=== PATIENT | female | born 1965 | race Caucasian/White ===

== ENCOUNTER 2019-04-14 14:13 | Inpatient (IN) ==
[2019-04-14] MEDS ORDERED: LACTATED RINGERS 1,000 ML IV ONE ×2 (14:45→15:45)
--- NOTE | 2019-04-14 14:48 | Emergency Department Note ---
General Adult HPI - General Chief complaint: Cold/Flu Symptoms Stated complaint: Cold / flu Time Seen by Provider: 04/14/19 14:24 Source: patient Mode of arrival: EMS Limitations: language barrier, altered mental status, physical limitation - History of Present Illness HPI Narrative: This is a developmentally disabled patient lives at [facility] and has had an upper respiratory infection or pneumonia for the last couple weeks. She was treated with Zithromax and finished a course of that but does not seem to be any better. She is a little hypoxic requiring oxygen with O2 sat in the mid 80s off oxygen. - Related Data Home Medications Medication Instructions Recorded Confirmed Albuterol Sulfate [Ventolin] 2.5 mg INH BIDP PRN 04/14/19 04/14/19 Divalproex Sodium [Depakote] 125 mg PO BID 04/14/19 04/14/19 Divalproex Sodium [Depakote] 125 mg PO DAILY 04/14/19 04/14/19 Famotidine [Pepcid] 40 mg PO DAILY 04/14/19 04/14/19 Levothyroxine [Synthroid] 88 mcg PO QAMAC 04/14/19 04/14/19 Mv-Mn/FA/D3/Lycopene/Lut/Coq10 1 tab PO DAILY 04/14/19 04/14/19 [Daily Multivitamin Capsule] Propylene Glycol/Peg 400/Pf 1 gtt OU DAILY 04/14/19 04/14/19 [Systane 0.3-0.4% Eye Drop] guaiFENesin/DEXTROMETHORPHAN 15 ml PO QID 04/14/19 04/14/19 [Robitussin Dm] Allergies Allergy/AdvReac Type Severity Reaction Status Date / Time pantoprazole Allergy Unknown Other Verified 04/14/19 14:15 Review of Systems All systems ED: reviewed and negative except as stated. Past Medical History - Past Medical History Medical history: Reports: dementia, GERD, seizures, thyroid disease - Social History smoking status: Never smoker Physical Exam Limitations: language barrier, altered mental status, physical limitation General appearance: in no apparent distress Head: atraumatic, normocephalic Eye: Present: normal appearance ENT: Present: mucous membranes dry Neck: Present: normal inspection Chest: Present: normal inspection Respiratory: Present: rales/crackles Cardiovascular: Present: regular rate, normal rhythm, normal heart sounds Abdominal: Present: soft. Absent: distention, tenderness Skin: Present: warm, dry Course Vital Signs Temperature 99.1 F H 04/14/19 14:17 Respiratory Rate 22 04/14/19 14:17 Pulse Oximetry (%) 86 L 04/14/19 14:17 Temperature 97.7 F 04/14/19 18:06 Pulse Rate 94 H 04/14/19 18:16 Respiratory Rate 18 04/14/19 18:16 Blood Pressure 96/62 04/14/19 18:16 Pulse Oximetry (%) 92 04/14/19 18:16 Medical Decision Making - MDM Narrative Medical decision making narrative: This patient does have pneumonia and was hypoxic off oxygen. Also is a bit hypotensive despite 2 L of fluid. She is comfort care only. We did culture her and gave her Rocephin and Levaquin and she will be admitted to the hospital. - Lab Data Lab results reviewed: Yes I reviewed the patient's lab results. Result diagrams: 04/14/19 14:31 04/14/19 14:30 Lab Results 04/14/19 04/14/19 04/14/19 Range/Units 14:30 14:31 14:31 WBC 8.9 (4.5-11.0) K/mcL RBC 4.10 (4.00-5.20) M/mcL Hgb 13.9 (12.0-15.0) g/dL Hct 42.1 (36.0-48.0) % MCV 102.5 H (80.0-100.0) fL MCH 33.8 (26.0-34.0) pg MCHC 33.0 (31.0-36.0) g/dL RDW 14.1 (11.5-14.5) % Plt Count 232 (140-440) K/mcL MPV 9.1 (7.4-10.4) fL Gran % 75.8 (38.0-78.0) % Lymph % (Auto) 17.6 (15.5-49.0) % [place] % (Auto) 6.3 (1.0-12.0) % Eos % (Auto) 0.1 (0.0-7.0) % Baso % (Auto) 0.2 (0.0-2.0) % Gran # 6.8 (1.8-8.0) K/mcL Lymph # (Auto) 1.6 (1.5-4.8) K/mcL [place] # (Auto) 0.6 (0.1-0.9) K/mcL Eos # (Auto) 0 (0.0-0.7) K/mcL Baso # (Auto) 0 (0.0-0.3) K/mcL VBG Lactic Acid 2.4 H (0.5-2.0) mmol/L Sodium 143 (133-145) mmol/L Potassium 3.9 (3.3-5.1) mmol/L Chloride 106 (96-108) mmol/L Carbon Dioxide 25 (22-30) mmol/L Anion Gap 12.0 (8-16) BUN 25 H (6-20) mg/dl Creatinine 1.0 (0.6-1.1) mg/dl GFR Calculation 64 Glucose 91 (70-105) mg/dL Calcium 8.9 (8.6-10.4) mg/dl Total Bilirubin 0.5 (0.0-1.0) mg/dL AST 27 (0-37) U/l ALT 13 (0-40) U/l Alkaline Phosphatase 113 (39-117) U/L Total Protein 7.4 (5.9-8.4) gm/dL Albumin 3.2 (3.2-5.2) gm/dL Globulin 4.2 H (2.2-3.7) gm/dL Albumin/Globulin Ratio 0.8 L (1.0-2.3) - Radiology Data Radiology results reviewed: Yes I reviewed the patient's radiology results. Disposition Pt seen by SOCK EXAMINER/PA only: No Clinical Impression: Pneumonia Disposition: Xfer As Inpt ([facility]) Condition: Fair Referrals: Rubén Goncalves MD [Primary Care Provider] - Time of Disposition: 19:12
--- NOTE | 2019-04-14 14:49 | XRay Report ---
CLINICAL INFORMATION: increased o2 demand / cough COMPARISON: None. FINDINGS: Heart size, mediastinum and pulmonary vessels are normal. Small patchy bibasilar infiltrates appreciated. No effusions. Bones and soft tissues normal. IMPRESSION: Small patchy bibasilar infiltrates. Consider aspiration or infection Interpreted and Authenticated by: Michael Easley 04/14/19
[2019-04-14 15:11] LABS: Basophils # (Auto) 0 K/mcL (0.0-0.3); Basophils % (Auto) 0.2 % (0.0-2.0); Eosinophils # (Auto) 0 K/mcL (0.0-0.7); Eosinophils % (Auto) 0.1 % (0.0-7.0); Granulocytes % (Auto) 75.8 % (38.0-78.0); Hematocrit 42.1 % (36.0-48.0); Hemoglobin 13.9 g/dL (12.0-15.0); Lymphocytes # (Auto) 1.6 K/mcL (1.5-4.8); Lymphocytes % (Auto) 17.6 % (15.5-49.0); Mean Cell Volume 102.5 fL (80.0-100.0); Mean Platelet Volume 9.1 fL (7.4-10.4); Monocytes # (Auto) 0.6 K/mcL (0.1-0.9); Monocytes % (Auto) 6.3 % (1.0-12.0); Platelet Count 232 K/mcL (140-440); Red Cell Distribution Width 14.1 % (11.5-14.5); WBC 8.9 K/mcL (4.5-11.0)
[2019-04-14] MEDS ORDERED: cefTRIAXone 1 GM VIAL IV ONE (15:24)
[2019-04-14] MEDS ORDERED: LEVOFLOXACIN 750 MG/150 ML BAG IV ONE (15:24)
[2019-04-14 15:30] LABS: ALT/SGPT 13 U/l (0-40); AST/SGOT 27 U/l (0-37); Albumin 3.2 gm/dL (3.2-5.2); Albumin/Globulin Ratio 0.8 (1.0-2.3); Alkaline Phosphatase 113 U/L (39-117); Bilirubin,Total 0.5 mg/dL (0.0-1.0); Blood Urea Nitrogen 25 mg/dl (6-20); Calcium 8.9 mg/dl (8.6-10.4); Carbon Dioxide 25 mmol/L (22-30); Chloride 106 mmol/L (96-108); Globulin 4.2 gm/dL (2.2-3.7); Glomerular Filtration Rate 64; Glucose 91 mg/dL (70-105)
[2019-04-14] MEDS ORDERED: 0.9 % SODIUM CHLORIDE 1,000 ML IV ONE ×2 (16:05→19:13)
[2019-04-14] MEDS ORDERED: ACETAMINOPHEN 1,000 MG/100 ML BOTTLE IV ONE (16:05)
--- NOTE | 2019-04-14 19:39 | Internal Med History&Physical ---
Medical - H&P: HPI Patient information: Note initiated : 04/14/19 at 7:36 pm Service Date, if different from initiated Date: [] Patient: Tati Mena a 54 y/o F admitted on for Cold / flu. Chief Complaint: [] History of present illness: Ms. Mena is a 54 year old F With Down syndrome who resides at [facility] who presents with fever chills cough appearance of shortness of breath for 10 days. She finished a course of azithromycin today but has not shown any improvement. Sats in the ED were 86 on room air. Chest x-ray in the ED showed bilateral infiltrates. Her mother is power of assistant attorney general. She is obtained from the mother and chart as patient is unable to give any history given her chronic's mental state. Sounds like there is been concerned about her swallowing and she had a speech therapy evaluation in the distant past. Had poor oral intake lately. She is also quite sedentary and is bedbound and essentially been bedbound since her admission [place] in July. In the ED she was found to be mildly hypotensive and tachycardic as well as tachypneic with a temperature of 100.5. Has been on several liters oxygen. Blood pressure did show some improvement after fluids. Pulse rate also improved. Satting 96% on Blood cultures were obtained. Unable to obtain review of systems as patient is nonverbal at baseline Medical - H&P: PMH Medical history: Past medical history: Down syndrome Seizure disorder GERD Hypothyroidism Past surgical history: Left hip surgery Social history: Patient resides at [facility] and is bedbound and has been such since July. She is essentially nonverbal occasionally will say a word or 2. Her mother who resides [employer] is her POA Medical - H&P: Meds Home Medications Medication Instructions Recorded Confirmed Type Albuterol Sulfate [Ventolin] 2.5 mg INH BIDP PRN 04/14/19 04/14/19 History Divalproex Sodium [Depakote] 125 mg PO BID 04/14/19 04/14/19 History Divalproex Sodium [Depakote] 125 mg PO DAILY 04/14/19 04/14/19 History Famotidine [Pepcid] 40 mg PO DAILY 04/14/19 04/14/19 History Levothyroxine [Synthroid] 88 mcg PO QAMAC 04/14/19 04/14/19 History Mv-Mn/FA/D3/Lycopene/Lut/Coq10 1 tab PO DAILY 04/14/19 04/14/19 History [Daily Multivitamin Capsule] Propylene Glycol/Peg 400/Pf 1 gtt OU DAILY 04/14/19 04/14/19 History [Systane 0.3-0.4% Eye Drop] guaiFENesin/DEXTROMETHORPHAN 15 ml PO QID 04/14/19 04/14/19 History [Robitussin Dm] Allergies Allergy/AdvReac Type Severity Reaction Status Date / Time pantoprazole Allergy Unknown Other Verified 04/14/19 14:15 Medical - H&P: Exam - Constitutional Vitals: Temp Pulse Resp BP Pulse Ox 97.7 F 87 21 93/55 96 04/14/19 18:06 04/14/19 19:16 04/14/19 19:16 04/14/19 19:16 04/14/19 19:16 Exam: General: Alert, Awake, No acute Distress Eyes/N/T: EOMI, PEERL, DMM Head/Neck: neck supple, normocephalic atraumatic CV: RRR, No murmurs, normal s1/s2 Pulm: Bilateral rhonchi, no wheezing abd: soft, nontender, +BS x4 Ext: no clubbing/cyanosis/edema Neuro: Alert, good market investigator strength bilaterally, tracks with eyes skin: warm/dry Medical - H&P: Reslt - Labs CBC & Chem 7: 04/14/19 14:31 04/14/19 14:30 Labs: Short CBC 04/14/19 Range/Units 14:31 WBC 8.9 (4.5-11.0) K/mcL Hgb 13.9 (12.0-15.0) g/dL Hct 42.1 (36.0-48.0) % Plt Count 232 (140-440) K/mcL BMP 04/14/19 14:30 Sodium 143 Potassium 3.9 Chloride 106 Carbon Dioxide 25 BUN 25 H Creatinine 1.0 Glucose 91 Calcium 8.9 Liver Function 04/14/19 Range/Units 14:30 Total Bilirubin 0.5 (0.0-1.0) mg/dL AST 27 (0-37) U/l ALT 13 (0-40) U/l Alkaline Phosphatase 113 (39-117) U/L Albumin 3.2 (3.2-5.2) gm/dL - Impressions Chest x-ray bilateral infiltrates Medical - H&P: A/P - Narrative A/P Narrative: A: *PNA, concern for Asp: failed outpt Azithromycin *Sepsis: *Volume Depletion: *Down's Syndrome: *Deconditioning/debility/poor functional status: Has been bedbound since July *Seizure disorder: *GERD: *Hypothyroidism: * P: -Zosyn, pending SC/BC -NPO until -'s -check PCT and REsp viral panel -mrsa pcr - -CM -ppx: lovenox DNR/comfort care Mother is POA
[2019-04-14] MEDS: 0.9 % SODIUM CHLORIDE 1,000 ML IV SCH ×2 (20:16→21:19)
[2019-04-14] MEDS ORDERED: MAGNESIUM SULFATE 2 GM/50 ML BAG IV PRN (21:03)
[2019-04-14] MEDS ORDERED: LACTULOSE 20 GM/30 ML ORAL.SOL PO PRN (21:03)
[2019-04-14] MEDS ORDERED: POLYETHYLENE GLYCOL 3350 17 GM PACKET PO PRN (21:03)
[2019-04-14] MEDS ORDERED: POTASSIUM CHLORIDE 20 MEQ TABLET PO PRN ×2 (21:03)
[2019-04-14] MEDS ORDERED: POTASSIUM CHLORIDE 40 MEQ in DEXTROSE 5% IN WATER 500 ML IV PRN (21:03)
[2019-04-14] MEDS ORDERED: ONDANSETRON 4 MG/2 ML VIAL IV PRN (21:03)
[2019-04-14] MEDS ORDERED: SENNOSIDES 1 TABLET PO PRN (21:03)
[2019-04-14] MEDS ORDERED: IPRATROPIUM/ALBUTEROL 3 ML AMPUL.NEB NEB PRN (21:03)
[2019-04-14] MEDS ORDERED: IPRATROPIUM/ALBUTEROL 3 ML AMPUL.NEB NEB ONE (21:47)
[2019-04-14] MEDS: DOCUSATE SODIUM 100 MG CAPSULE PO SCH (22:06)
[2019-04-14] MEDS: FAMOTIDINE/PF 20 MG/2 ML VIAL IV SCH (22:07)
[2019-04-14] MEDS: 0.9 % SODIUM CHLORIDE 10 ML SYRINGE IV SCH (22:09)
[2019-04-14 22:11] LABS: Appearance,Urine HAZY; Bacteria,Urine 0 /hpf (0); Bilirubin,Urine NEG (NEG); Color,Urine AMBER; Culture Indicated,Urine NO; Glucose,Urine (UA) NEGATIVE (NEG); Ketones,Urine NEG (NEG); Leukocyte Esterase,Urine NEG /uL (NEG); Mucus,Urine MOD /hpf (0); Nitrate,Urine NEG (NEG); Protein,Urine 30 mg/dL (NEG); Specific Gravity,Urine 1.032 (1.000-1.035); Urine Blood NEG mg/dL (<0.03); Urine RBC 0 /hpf (0-1); Urine Squamous Epithelial Cell < 1 /hpf (0-4); Urine WBC 2 /hpf (0-4); Urobilinogen,Urine NEG (NEG)
[2019-04-14 22:22] LABS: C-Reactive Protein 10.4 mg/dl (0.0-0.8)
[2019-04-14] MEDS: PIPERACILLIN SODIUM/TAZOBACTAM 3.375 GM in DEXTROSE 5% IN WATER 50 ML IV SCH (22:23)
[2019-04-14] MEDS: DIVALPROEX 125 MG CAP.SPRINK PO SCH (22:25)
[2019-04-14 22:35] LABS: Band Neutrophils % 9 % (0-10); Lymphocytes % 11 % (15-49); Macrocytosis 1+ (NONE SEEN); Monocytes % (Manual) 7 % (1-12); Platelet Estimate NORMAL (NORMAL); RBC Morphology ABNORM (NORMAL); Segmented Neutrophils % 73 % (38-78)
[2019-04-15] MEDS: IPRATROPIUM/ALBUTEROL 3 ML AMPUL.NEB NEB SCH ×4 (01:01→18:54)
[2019-04-15] MEDS: 0.9 % SODIUM CHLORIDE 1,000 ML IV SCH ×2 (02:09→02:39)
[2019-04-15] MEDS: PIPERACILLIN SODIUM/TAZOBACTAM 3.375 GM in DEXTROSE 5% IN WATER 50 ML IV SCH ×5 (04:30→23:56)
[2019-04-15] MEDS: 0.9 % SODIUM CHLORIDE 10 ML SYRINGE IV SCH ×3 (05:35→20:57)
[2019-04-15 06:28] LABS: Hematocrit 35.2 % (36.0-48.0); Hemoglobin 11.5 g/dL (12.0-15.0); Mean Cell Volume 105.6 fL (80.0-100.0); Mean Corpuscular HGB Conc 32.7 g/dL (31.0-36.0); Platelet Count 153 K/mcL (140-440); RBC 3.33 M/mcL (4.00-5.20); Red Cell Distribution Width 13.5 % (11.5-14.5); WBC 7.8 K/mcL (4.5-11.0)
[2019-04-15 06:45] LABS: ALT/SGPT 5 U/l (0-40); AST/SGOT 19 U/l (0-37); Albumin 2.2 gm/dL (3.2-5.2); Albumin/Globulin Ratio 0.7 (1.0-2.3); Alkaline Phosphatase 77 U/L (39-117); Bilirubin,Direct < 0.2 mg/dL (0.0-0.3); Bilirubin,Total 0.3 mg/dL (0.0-1.0); Blood Urea Nitrogen 21 mg/dl (6-20); Calcium 7.9 mg/dl (8.6-10.4); Carbon Dioxide 20 mmol/L (22-30); Chloride 112 mmol/L (96-108); Globulin 3.1 gm/dL (2.2-3.7); Glomerular Filtration Rate 99; Glucose 97 mg/dL (70-105); Lactate Dehydrogenase 269 U/L (94-250); Phosphorous 2.9 mg/dL (2.7-4.5); Triglycerides 104 mg/dl (<150)
--- NOTE | 2019-04-15 07:02 | Internal Med Progress Note ---
Medical - PN: Subj Patient information: Note initiated : 04/15/19 at 6:55 am Service Date, if different from initiated Date: [] Patient: Tati Mena a 54 y/o F admitted on 04/14/19 for Cold / flu. Chief Complaint: [] Interval history: Ms. Mena is a 54 year old F With Down syndrome who resides at [facility] who presents with fever chills cough appearance of shortness of breath for 10 days. She finished a course of azithromycin today but has not shown any improvement. Sats in the ED were 86 on room air. Chest x-ray in the ED showed bilateral infiltrates. Her mother is power of securities attorney. She is obtained from the mother and chart as patient is unable to give any history given her chronic's mental state. Sounds like there is been concerned about her swallowing and she had a speech therapy evaluation in the distant past. Had poor oral intake lately. She is also quite sedentary and is bedbound and essentially been bedbound since her admission [place] in July. In the ED she was found to be mildly hypotensive and tachycardic as well as tachypneic with a temperature of 100.5. Has been on several liters oxygen. Blood pressure did show some improvement after fluids. Pulse rate also improved. Satting 96% on Blood cultures were obtained. 04/15 Overnight events. Blood pressure still low overnight. Awaiting morning vital signs. Sats high 90s on liters of oxygen. On auscultation improved sounds. Patient nonverbal at baseline unable to gather review of systems - Constitutional Vitals: Vital Signs Temp Pulse Resp BP Pulse Ox 96.9 F L 75 18 88/59 92 04/15/19 03:58 04/15/19 03:58 04/15/19 03:58 04/15/19 03:58 04/15/19 03:58 Period Temp Pulse Resp BP Sys/Ramesh Pulse Ox Last 24 Hr 96.9 F-100.5 F 66-105 17-27 83-105/52-76 86-99 Intake and Output 04/14/19 04/15/19 04/15/19 21:59 05:59 13:59 Intake Total 3250 456 Output Total 500 Balance 2750 456 Weight 62.55 kg Intake & Output: Intake & Output 04/14/19 04/15/1919 21:59 05:59 13:59 Intake Total 3250 456 Output Total 500 Balance 2750 456 Weight 62.55 kg Intake: IV 3250 456 Sodium Chloride 0.9% 1,000 ml @ 2000 406 84 mls/hr IV .[id number] [facility] Rx#: [id number] Lactated Ringers 1,000 ml @ 1000 Wide Open IV BOLUS ONE Rx#: [id number] Zosyn 3.375 gm In Dextrose 5% 50 in Water 50 ml @ 100 mls/hr IV Q6H [facility] Rx#:[id number] Oral 0 Output: Urine Catheter Amount 500 Straight 500 Other: Urine Appearance Sediment Straight Cloudy Urine Color Dark Valeria Straight Light Valeria Urine Odor Strong Straight Foul Exam: General: Alert, Awake, No acute Distress Eyes/N/T: EOMI, Head/Neck: neck supple, CV: RRR, No murmurs, Pulm: much improved Bilateral rhonchi, no wheezing abd: soft, nontender, +BS x4 Ext: no clubbing/cyanosis/edema Neuro: Alert, moves extremities, nonverbal at baseline skin: warm/dry Medical - PN: Obj Da - Labs CBC & Chem 7: 04/15/19 05:20 04/15/19 05:20 Labs: Abnormal Lab Results 04/15/19 04/15/19 04/14/19 05:20 05:20 21:35 RBC 3.33 L Hgb 11.5 L Hct 35.2 L MCV 105.6 H MCH 34.6 H Lymphocytes % RBC Morphology Macrocytosis VBG Lactic Acid Chloride 112 H Carbon Dioxide 20 L BUN 21 H Calcium 7.9 L Lactate Dehydrogenase 269 H C-Reactive Protein Total Protein 5.3 L Albumin 2.2 L Globulin Albumin/Globulin Ratio 0.7 L Urine Protein 30 A 04/14/19 04/14/19 04/14/19 21:15 21:15 14:31 RBC Hgb Hct MCV MCH Lymphocytes % 11 L RBC Morphology Abnorm A Macrocytosis 1+ A VBG Lactic Acid 2.4 H Chloride Carbon Dioxide BUN Calcium Lactate Dehydrogenase C-Reactive Protein 10.4 H Total Protein Albumin Globulin Albumin/Globulin Ratio Urine Protein 04/14/19 04/14/19 14:31 14:30 RBC Hgb Hct MCV 102.5 H MCH Lymphocytes % RBC Morphology Macrocytosis VBG Lactic Acid Chloride Carbon Dioxide BUN 25 H Calcium Lactate Dehydrogenase C-Reactive Protein Total Protein Albumin Globulin 4.2 H Albumin/Globulin Ratio 0.8 L Urine Protein Meds: Medications Albuterol/Ipratropium (Duoneb) 3 ml NEB Q6HRT [facility] Last Admin: 04/15/19 01:01 Dose: 3 ml Documented by: Albuterol/Ipratropium (Duoneb) 3 ml NEB Q4HP PRN PRN Reason: Shortness Of Breath Last Admin: 04/14/19 21:47 Dose: 3 ml Documented by: Divalproex Sodium (Depakote Sprinkles) 125 mg PO BID [facility] Last Admin: 04/14/19 22:25 Dose: 125 mg Documented by: Divalproex Sodium (Depakote Sprinkles) 125 mg PO DAILY [facility] Docusate Sodium (Colace) 100 mg PO BID [facility] Last Admin: 04/14/19 22:06 Dose: Not Given Documented by: Enoxaparin Sodium (Lovenox) 40 mg SQ DAILY [facility] Famotidine (Pepcid) 20 mg IV Q12 [facility] Last Admin: 04/14/19 22:07 Dose: 20 mg Documented by: Sodium Chloride (Sodium Chloride 0.9%) 1,000 mls @ 84 mls/hr IV .[id number] [facility] Stop: 04/15/19 19:33 Last Admin: 04/15/19 02:09 Dose: 84 mls/hr Documented by: Potassium Chloride 40 meq/ (Dextrose) 520 mls @ 130 mls/hr IV UD PRN PRN Reason: Potassium < 3 Magnesium Sulfate (Magnesium Sulfate) 2 gm in 50 mls @ 50 mls/hr IV UD PRN PRN Reason: Magnesium </= 1.6 Piperacillin Sod/Tazobactam (Sod 3.375 gm/ Dextrose) 50 mls @ 100 mls/hr IV Q6H [facility]; Protocol Last Admin: 04/15/19 05:48 Dose: Not Given Documented by: Lactulose (Cephulac) 10 gm PO DAILYP PRN PRN Reason: Constipation Levothyroxine Sodium (Synthroid) 88 mcg PO QAMAC [facility] Ondansetron HCl (Zofran) 4 mg IV Q4HP PRN PRN Reason: Nausea And Vomiting Propylene Glycol/Peg 400/Pf [Systane] 0. 3-0.4% Eye Drops 1 dose OU DAILY YAIR Polyethylene Glycol (Miralax) 17 gm PO DAILYP PRN PRN Reason: Constipation Potassium Chloride (Kdur) 40 meq PO UD PRN PRN Reason: Potssium is 3-3.5 Potassium Chloride (Kdur) 40 meq PO UD PRN PRN Reason: Potassium < 3 Senna (Senokot) 2 tab PO HSP PRN PRN Reason: Constipation Sodium Chloride (Saline Flush) 10 ml IV Q8 [facility] Last Admin: 04/15/19 05:35 Dose: Not Given Documented by: Medical - PN: A/P - Time Spent With Patient Total time spent is greater than 50% in coordination of care (as documented) at patient's floor/unit and/or counseling patient: - Narrative A/P Narrative: A: *PNA, concern for Asp: failed outpt Azithromycin -resp viral panel neg *Acute hypoxic Resp failure: 2/2 above *Sepsis: improving *Volume Depletion: improved *Down's Syndrome: *Deconditioning/debility/poor functional status: Has been bedbound since July *Seizure disorder: *GERD: *Hypothyroidism: * P: -Zosyn, pending SC/BC -NPO until -'s while npo - -CM -ppx: lovenox DNR/comfort care Mother is POA Medical - PN: Qual - Stroke Symptom Onset Unknown: No - VTE Deep Vein Thrombosis/Pulmonary Embolism Present on Admission: No
[2019-04-15] MEDS ORDERED: DIVALPROEX 125 MG CAP.SPRINK PO SCH (09:00)
[2019-04-15 09:26] LABS: Band Neutrophils % 9 % (0-10); Eosinophils % (Manual) 3 % (0-7); Lymphocytes % 14 % (15-49); Metamyelocytes % 2 % (0-0); Microcytosis 1+ (NONE SEEN); Monocytes % (Manual) 11 % (1-12); Platelet Estimate NORMAL (NORMAL); RBC Morphology ABNORM (NORMAL); Reactive Lymphocytes 1 % (0-2); Segmented Neutrophils % 60 % (38-78); Toxic Granulation 1+ (NONE SEEN)
[2019-04-15] MEDS: 0.45 % SODIUM CHLORIDE 1,000 ML IV SCH ×2 (10:47→15:30)
[2019-04-15] MEDS: LEVOTHYROXINE 88 MCG TABLET PO SCH (10:48)
[2019-04-15] MEDS: ENOXAPARIN 40 MG/0.4 ML SYRINGE SQ SCH (10:49)
[2019-04-15] MEDS: FAMOTIDINE/PF 20 MG/2 ML VIAL IV SCH ×2 (10:49→20:56)
[2019-04-15] MEDS: DOCUSATE SODIUM 100 MG CAPSULE PO SCH ×2 (10:50→20:56)
[2019-04-15] MEDS: DIVALPROEX 125 MG CAP.SPRINK PO SCH ×3 (12:23→20:55)
[2019-04-15] MEDS: PEG OU SCH (13:34)
[2019-04-15] MEDS: EYE OU SCH (13:34)
[2019-04-15] MEDS: PROPYLENE GLYCOL OU SCH (13:34)
--- NOTE | 2019-04-15 16:57 | Discharge Summary ---
Medical - DS: Prov Patient information: Note initiated : 04/15/19 at 4:55 pm Service Date, if different from initiated Date: [] Patient: Tati Mena a 54 y/o F admitted on 04/14/19 for Cold / flu. Chief Complaint: [] Date of admission: 04/14/19 20:52 Discharge date: 04/16/19 Primary care physician: Rubén Goncalves Consults: 04/14/19 Consult to Physician [CONS] Stat Comment: Consulting Provider: Owen Somers Reason For Exam: Physician to Consult Medical - DS: Meds - Discharge Medications Prescriptions: Amoxicillin/Potassium Clav [Augmentin] 875 mg PO Q12H #8 tab Lactobacillus [Culturelle] 1 cap PO BID #40 capsule Active and Home Medications: Home Medications Albuterol Sulfate [Ventolin] 2.5 mg INH BIDP PRN 04/14/19 [History Confirmed 04/14/19 Last Taken Unknown] Divalproex Sodium [Depakote] 125 mg PO BID 04/14/19 [History Confirmed 04/14/19 Last Taken Unknown] Divalproex Sodium [Depakote] 125 mg PO DAILY 04/14/19 [History Confirmed 04/14/19 Last Taken Unknown] Famotidine [Pepcid] 40 mg PO DAILY 04/14/19 [History Confirmed 04/14/19 Last Taken Unknown] Levothyroxine [Synthroid] 88 mcg PO QAMAC 04/14/19 [History Confirmed 04/14/19 Last Taken Unknown] Mv-Mn/FA/D3/Lycopene/Lut/Coq10 [Daily Multivitamin Capsule] 1 tab PO DAILY 04/14/19 [History Confirmed 04/14/19 Last Taken Unknown] Propylene Glycol/Peg 400/Pf [Systane 0.3-0.4% Eye Drop] 1 gtt OU DAILY 04/14/19 [History Confirmed 04/14/19 Last Taken Unknown] guaiFENesin/DEXTROMETHORPHAN [Robitussin Dm] 15 ml PO QID 04/14/19 [History Confirmed 04/14/19 Last Taken Unknown] Medical - DS: Hosp Hospital Course: Ms. Mena is a 54 year old F With Down syndrome who resides at [facility] who presents with fever chills cough appearance of shortness of breath for 10 days. She finished a course of azithromycin today but has not shown any improvement. Sats in the ED were 86 on room air. Chest x-ray in the ED showed bilateral infiltrates. Her mother is power of district attorney. She is obtained from the mother and chart as patient is unable to give any history given her chronic's mental state. Sounds like there is been concerned about her swallowing and she had a speech therapy evaluation in the distant past. Had poor oral intake lately. She is also quite sedentary and is bedbound and essentially been bedbound since her admission [place] in July. In the ED she was found to be mildly hypotensive and tachycardic as well as tachypneic with a temperature of 100.5. Has been on several liters oxygen. Blood pressure did show some improvement after fluids. Pulse rate also improved. Satting 96% on Blood cultures were obtained. 04/15 Overnight events. Blood pressure still low overnight. Awaiting morning vital signs. Sats high 90s on liters of oxygen. On auscultation improved sounds. Patient nonverb 04/16 Patient doing well. No overnight events. On room air. Seen by speech therapy yesterday and found to have moderate oral pharyngeal dysphasia and put on a dysphasia diet. Stable for discharge Discharge diagnosis: Operation pneumonia oral pharyngeal dysphagia acute hypoxic respiratory adore Secondary discharge diagnosis: Sepsis volume depletion Down syndrome deconditioning debility poor functional status seizure disorder GERD hypothyroidism - Time Spent with Patient Total time spent providing and/or coordinating discharge services: Greater than 30 minutes Medical - DS: Exam - Constitutional Vitals: Vital Signs Temp Pulse Pulse Resp BP BP BP 04/15/19 13:00 86 20 04/15/19 12:00 97.4 F 74 18 90/58 04/15/19 08:00 97.0 F 79 18 83/66 04/15/19 07:28 04/15/19 07:26 80 16 04/15/19 03:58 96.9 F L 75 18 88/59 04/15/19 01:03 97.1 F 66 18 90/60 04/14/19 22:05 83 20 04/14/19 22:03 89 20 04/14/19 21:03 97.6 F 85 20 87/60 04/14/19 20:52 97.6 F 85 20 87/60 04/14/19 20:46 85 17 92/55 04/14/19 20:45 97.7 F 85 17 92/55 04/14/19 20:35 84 20 92/53 04/14/19 20:32 87 19 04/14/19 20:31 87 21 92/53 04/14/19 20:16 25 H 86/52 04/14/19 20:01 85 18 96/55 04/14/19 19:46 17 99/53 04/14/19 19:31 17 87/63 04/14/19 19:16 87 21 93/55 04/14/19 19:09 89 18 84/52 04/14/19 19:01 89 26 H 85/52 04/14/19 18:46 91 H 20 83/52 04/14/19 18:31 93 H 19 88/57 04/14/19 18:16 94 H 18 96/62 04/14/19 18:08 95 H 18 105/76 04/14/19 18:06 97.7 F 95 H 18 105/76 04/14/19 18:01 93 H 20 88/59 04/14/19 17:46 96 H 27 H 102/65 04/14/19 17:31 103 H 25 H 99/63 04/14/19 17:02 105 H 21 92/65 Pulse Ox 04/15/19 13:00 04/15/19 12:00 98 04/15/19 08:00 100 04/15/19 07:28 97 04/15/19 07:26 04/15/19 03:58 92 04/15/19 01:03 92 04/14/19 22:05 95 04/14/19 22:03 04/14/19 21:03 95 04/14/19 20:52 95 04/14/19 20:46 99 04/14/19 20:45 99 04/14/19 20:35 97 04/14/19 20:32 96 04/14/19 20:31 99 04/14/19 20:16 04/14/19 20:01 95 04/14/19 19:46 04/14/19 19:31 04/14/19 19:16 96 04/14/19 19:09 97 04/14/19 19:01 97 04/14/19 18:46 96 04/14/19 18:31 95 04/14/19 18:16 92 04/14/19 18:08 96 04/14/19 18:06 98 04/14/19 18:01 98 04/14/19 17:46 96 04/14/19 17:31 97 04/14/19 17:02 93 Intake and Output 04/15/19 04/15/19 04/15/19 05:59 13:59 21:59 Intake Total 506 50 Balance 506 50 Intake: IV 506 50 Sodium Chloride 0.9% 1,000 ml @ 406 84 mls/hr IV .[id number] [facility] Rx#: [id number] Zosyn 3.375 gm In Dextrose 5% 100 50 in Water 50 ml @ 100 mls/hr IV Q6H [facility] Rx#:[id number] Oral 0 Other: Stool Color Brown Stool Consistency Soft Liquid Medical - DS: Data Labs on day of discharge: Labs from last 24 hours 04/15/19 04/15/19 04/14/19 05:20 05:20 21:35 WBC 7.8 RBC 3.33 L Hgb 11.5 L Hct 35.2 L MCV 105.6 H MCH 34.6 H MCHC 32.7 RDW 13.5 Plt Count 153 MPV 9.0 Total Counted 100 Seg Neutrophils % 60 Band Neutrophils % 9 Lymphocytes % 14 L Monocytes % (Manual) 11 Eosinophils % (Manual) 3 Metamyelocytes % 2 H WBC Morphology Abnorm A Reactive Lymphocytes 1 Toxic Granulation 1+ A Platelet Estimate Normal RBC Morphology Abnorm A Microcytosis 1+ A Macrocytosis VBG Lactic Acid Sodium 142 Potassium 4.1 Chloride 112 H Carbon Dioxide 20 L Anion Gap 10.0 BUN 21 H Creatinine 0.7 GFR Calculation 99 Glucose 97 Uric Acid 3.0 Calcium 7.9 L Phosphorus 2.9 Magnesium 2.1 Total Bilirubin 0.3 Direct Bilirubin < 0.2 GGT 26 AST 19 ALT 5 Alkaline Phosphatase 77 Lactate Dehydrogenase 269 H C-Reactive Protein Total Protein 5.3 L Albumin 2.2 L Globulin 3.1 Albumin/Globulin Ratio 0.7 L Triglycerides 104 Procalcitonin Urine Color Valeria Urine Appearance Hazy Urine pH 7.0 Ur Specific [place] 1.032 Urine Protein 30 A Urine Glucose (UA) Negative Urine Ketones Neg Urine Occult Blood Neg Urine Nitrate Neg Urine Bilirubin Neg Urine Urobilinogen Neg Ur Leukocyte Esterase Neg Urine RBC 0 Urine WBC 2 Ur Squamous Epith Cells < 1 Urine Bacteria 0 Urine Mucus Mod Ur Culture Indicated? No 04/14/19 04/14/19 04/14/19 21:15 21:15 21:15 WBC RBC Hgb Hct MCV MCH MCHC RDW Plt Count MPV Total Counted 100 Seg Neutrophils % 73 Band Neutrophils % 9 Lymphocytes % 11 L Monocytes % (Manual) 7 Eosinophils % (Manual) Metamyelocytes % WBC Morphology Reactive Lymphocytes Toxic Granulation Platelet Estimate Normal RBC Morphology Abnorm A Microcytosis Macrocytosis 1+ A VBG Lactic Acid Sodium Potassium Chloride Carbon Dioxide Anion Gap BUN Creatinine GFR Calculation Glucose Uric Acid Calcium Phosphorus Magnesium Total Bilirubin Direct Bilirubin GGT AST ALT Alkaline Phosphatase Lactate Dehydrogenase C-Reactive Protein 10.4 H Total Protein Albumin Globulin Albumin/Globulin Ratio Triglycerides Procalcitonin 0.11 Urine Color Urine Appearance Urine pH Ur Specific [place] Urine Protein Urine Glucose (UA) Urine Ketones Urine Occult Blood Urine Nitrate Urine Bilirubin Urine Urobilinogen Ur Leukocyte Esterase Urine RBC Urine WBC Ur Squamous Epith Cells Urine Bacteria Urine Mucus Ur Culture Indicated? 04/14/19 04/14/19 14:31 14:30 WBC RBC Hgb Hct MCV MCH MCHC RDW Plt Count MPV Total Counted Seg Neutrophils % Band Neutrophils % Lymphocytes % Monocytes % (Manual) Eosinophils % (Manual) Metamyelocytes % WBC Morphology Reactive Lymphocytes Toxic Granulation Platelet Estimate RBC Morphology Microcytosis Macrocytosis VBG Lactic Acid 2.4 H Pending Sodium Potassium Chloride Carbon Dioxide Anion Gap BUN Creatinine GFR Calculation Glucose Uric Acid Calcium Phosphorus Magnesium Total Bilirubin Direct Bilirubin GGT AST ALT Alkaline Phosphatase Lactate Dehydrogenase C-Reactive Protein Total Protein Albumin Globulin Albumin/Globulin Ratio Triglycerides Procalcitonin Urine Color Urine Appearance Urine pH Ur Specific [place] Urine Protein Urine Glucose (UA) Urine Ketones Urine Occult Blood Urine Nitrate Urine Bilirubin Urine Urobilinogen Ur Leukocyte Esterase Urine RBC Urine WBC Ur Squamous Epith Cells Urine Bacteria Urine Mucus Ur Culture Indicated? Medical - DS: A/P - Patient/Caregiver Discharge Instructions Activity: increase activity as tolerated Diet: Dysphagia Level 4 Pureed Foods (extremely thick liquids. completely upright for any oral intake) Prescriptions: Amoxicillin/Potassium Clav [Augmentin] 875 mg PO Q12H #8 tab - Follow up Plan Follow up with: Rubén Goncalves MD [Primary Care Provider] - Disposition: er [facility] Care Plan Goals: This discharge packet is provided to you to help keep you informed about your care. We want to ensure you get everything you need when you go home. You will also be receiving a call from us in a few days to follow up with you and see how you are doing since your discharge. This gives us a chance to listen to any concerns you maybe experiencing since you were discharged or any additional needs you may have, as well as providing us feedback on your care experience. We strive to always provide excellent care and thank you for your feedback and for choosing [facility]. Prognosis: Undetermined Rehab Potential: Fair I certify that the patient requires SNF services: Yes Overall status at discharge: patient is progressing back to baseline Medical - DS: Qual - VTE Deep Vein Thrombosis/Pulmonary Embolism Present on Admission: No
[2019-04-16] MEDS: IPRATROPIUM/ALBUTEROL 3 ML AMPUL.NEB NEB SCH ×2 (01:17→07:41)
[2019-04-16] MEDS: PIPERACILLIN SODIUM/TAZOBACTAM 3.375 GM in DEXTROSE 5% IN WATER 50 ML IV SCH ×2 (06:20→12:14)
[2019-04-16] MEDS: 0.9 % SODIUM CHLORIDE 10 ML SYRINGE IV SCH ×2 (06:31→14:14)
[2019-04-16 07:14] LABS: Blood Urea Nitrogen 13 mg/dl (6-20); Calcium 8.1 mg/dl (8.6-10.4); Carbon Dioxide 25 mmol/L (22-30); Chloride 110 mmol/L (96-108); Glomerular Filtration Rate 99; Glucose 102 mg/dL (70-105)
[2019-04-16] MEDS: LEVOTHYROXINE 88 MCG TABLET PO SCH (07:41)
[2019-04-16] MEDS ORDERED: LACTOBACILLUS 1 CAPSULE PO SCH (09:10)
[2019-04-16] MEDS: DOCUSATE SODIUM 100 MG CAPSULE PO SCH (09:51)
[2019-04-16] MEDS: PROPYLENE GLYCOL OU SCH (09:52)
[2019-04-16] MEDS: ENOXAPARIN 40 MG/0.4 ML SYRINGE SQ SCH (09:52)
[2019-04-16] MEDS: EYE OU SCH (09:52)
[2019-04-16] MEDS: DIVALPROEX 125 MG CAP.SPRINK PO SCH ×2 (09:52→13:19)
[2019-04-16] MEDS: FAMOTIDINE/PF 20 MG/2 ML VIAL IV SCH (09:52)
[2019-04-16] MEDS: PEG OU SCH (09:52)
[2019-04-16] MEDS ORDERED: 0.9 % SODIUM CHLORIDE 200 ML IV ONE (10:20)
[2019-04-16] MEDS ORDERED: FLU VACC QS2019-20(6MOS UP)/PF 60 MCG/0.5 ML SYRINGE IM ONE (13:26)
[2019-04-16] MEDS ORDERED: PNEUMOCCAL 13 VACC (ADULT) 0.5 ML SYRINGE IM ONE (13:26)
[2019-04-16] MEDS ORDERED: PNEUMOCOCCAL 23-VAL P-SAC VAC 0.5 ML SYRINGE IM ONE (13:30)
== END 2019-04-16 14:55 | DRG 871 ==
LOC: ED 14:13 → MEDSUR 20:52
PROVIDERS: ADMIT Internal Medicine; ATTEND Internal Medicine

== ENCOUNTER 2019-06-28 07:59 | Inpatient (IN) ==
[2019-06-28] MEDS ORDERED: LACTATED RINGERS 1,000 ML IV ONE (08:08)
[2019-06-28] MEDS ORDERED: IPRATROPIUM/ALBUTEROL 3 ML AMPUL.NEB NEB ONE ×2 (08:32→09:06)
[2019-06-28] MEDS ORDERED: 0.9 % SODIUM CHLORIDE 1,000 ML IV ONE ×2 (08:50→13:08)
[2019-06-28] MEDS ORDERED: PIPERACILLIN SODIUM/TAZOBACTAM 3.375 GM in DEXTROSE 5% IN WATER 50 ML IV ONE (08:52)
[2019-06-28] MEDS ORDERED: VANCOMYCIN 1,000 MG in 0.9 % SODIUM CHLORIDE 250 ML IV ONE (08:53)
--- NOTE | 2019-06-28 08:54 | Emergency Department Note ---
General Adult HPI - General Chief complaint: Cold/Flu Symptoms Stated complaint: Cold symptoms Time Seen by Provider: 06/28/19 08:40 Source: patient, EMS, old records reviewed Mode of arrival: EMS Limitations: other - History of Present Illness HPI Narrative: 54-year-old female with Down's syndrome patient comes in from [facility] [place] [facility] for productive cough with low oxygen saturations and unresponsiveness. Patient is unable to give me any meaningful history or review of systems. oxygen levels of 85% on RA-now on. She carries a diagnosis of Alzheimer's as well as seizures. She has been shaking recently and there is concern she is having partial seizures. Unclear if she has had a fever. Recently had Zithromax for cough. Also recent hospitalization for pneumonia 2 months ago. She is DNR with limited interventions. Her mother is coming from [facility] Medications Medication Instructions Recorded Confirmed Albuterol Sulfate [Ventolin] 2.5 mg INH BIDP PRN 04/14/19 06/28/19 Divalproex Sodium [Depakote] 125 mg PO BID 04/14/19 06/28/19 Divalproex Sodium [Depakote] 125 mg PO DAILY 04/14/19 06/28/19 Famotidine [Pepcid] 40 mg PO DAILY 04/14/19 06/28/19 Levothyroxine [Synthroid] 88 mcg PO QAMAC 04/14/19 06/28/19 Mv-Mn/FA/D3/Lycopene/Lut/Coq10 1 tab PO DAILY 04/14/19 06/28/19 [Daily Multivitamin Capsule] Propylene Glycol/Peg 400/Pf 1 gtt OU DAILY 04/14/19 06/28/19 [Systane 0.3-0.4% Eye Drop] Acetaminophen [Tylenol] 650 mg PO BID 06/28/19 06/28/19 Allergies Allergy/AdvReac Type Severity Reaction Status Date / Time pantoprazole Allergy Unknown Other Verified 06/28/19 08:00 Review of Systems Limitations: ROS unobtainable due to patients medical condition Past Medical History - Past Medical History Attestation: Yes: The following information was validated with the patient. Medical history: Reports: dementia, GERD, seizures, thyroid disease Surgical history ED: Reports: hip replacement - Social History smoking status: Never smoker Physical Exam Unresponsive to verbal stimuli. Staring blankly off into space. Normocephalic atraumatic. Conjunctive are clear sclerae white nonicteric. Pupils are equal reactive to light and accommodation. She does blink when I shine the light in her eyes. She is wearing mask oxygen and she has an occasional productive cough. Nursing staff reports that she did react as well when they did a flu swab through her nose. Neck is supple without lymphadenopathy or thyromegaly. Heart is regular rhythm but tachycardic. Lungs with rales bilaterally. No pedal edema. She does seem to be shaking a little bit from time to time this could be consistent with partial seizures. I am unable to get any meaningful history or review of systems from her-she is nonverbal but she does move away from pain and noxious stimuli. She is sitting up on her own Limitations: other Course Vital Signs Temperature 99.0 F 06/28/19 08:00 Pulse Rate 123 H 06/28/19 08:00 Respiratory Rate 28 H 06/28/19 08:00 Blood Pressure 156/129 06/28/19 08:00 Pulse Oximetry (%) 90 06/28/19 08:00 Temperature 99.0 F 06/28/19 08:00 Pulse Rate 110 H 06/28/19 08:32 Respiratory Rate 28 H 06/28/19 08:32 Blood Pressure 167/93 06/28/19 08:32 Pulse Oximetry (%) 90 06/28/19 08:32 Medical Decision Making - Lab Data Result diagrams: 06/28/19 08:11 06/28/19 08:10 - EKG Data EKG #1 EKG attestation: Yes I reviewed and interpreted this EKG., Yes There are no EKG findings of acute coronary syndrome, Yes This EKG will be read by optical goods worker EKG results narrative: Sinus tachycardia Disposition Pt seen by [employer]/PA only: No Summary: Suspect pneumonia versus PE or other respiratory compromise. Differential diagnosis includes sepsis and cardiac disease as well. Work-up ordered. Added CT angiogram of the chest. Start IV fluids and early antibiotics in the event this is sepsis. Blood cultures were ordered Patient will be checked out to Dr. Young at shift change Disposition: Still a Patient Condition: Critical Referrals: Rubén Goncalves MD [Primary Care Provider] -
[2019-06-28 09:13] LABS: Basophils # (Auto) 0 K/mcL (0.0-0.3); Basophils % (Auto) 0.2 % (0.0-2.0); Eosinophils # (Auto) 0 K/mcL (0.0-0.7); Eosinophils % (Auto) 0 % (0.0-7.0); Granulocytes % (Auto) 83.6 % (38.0-78.0); Hematocrit 46.5 % (36.0-48.0); Hemoglobin 14.9 g/dL (12.0-15.0); Lymphocytes # (Auto) 0.7 K/mcL (1.5-4.8); Lymphocytes % (Auto) 4.6 % (15.5-49.0); Mean Cell Volume 103.7 fL (80.0-100.0); Mean Corpuscular HGB Conc 32.1 g/dL (31.0-36.0); Mean Platelet Volume 11.3 fL (7.4-10.4); Monocytes # (Auto) 1.8 K/mcL (0.1-0.9); Monocytes % (Auto) 11.6 % (1.0-12.0); Platelet Count 175 K/mcL (140-440); RBC 4.49 M/mcL (4.00-5.20); Red Cell Distribution Width 16.5 % (11.5-14.5); WBC 15.9 K/mcL (4.5-11.0)
[2019-06-28 09:32] LABS: POC Blood Urea Nitrogen 94 mg/dl (6-20); POC CO2 24 mmol/L (22-30); POC Calcium, Ionized 1.15 mmol/L (1.16-1.32); POC Chloride 121 mmol/L (96-108); POC Creatinine 5.7 mg/dl (0.6-1.1); POC Glucose, Random 132 mg/dL (70-105); POC Potassium 4.9 mmol/L (3.3-5.1); POC Sodium 156 mmol/L (133-145)
--- NOTE | 2019-06-28 09:33 | Emergency Department Note ---
General Adult HPI - General Chief complaint: Cold/Flu Symptoms Stated complaint: Cold symptoms Time Seen by Provider: 06/28/19 08:40 Source: patient, EMS, old records reviewed Mode of arrival: EMS Limitations: other - History of Present Illness HPI Narrative: See history and physical dictated by Dr. Ivey. I am seeing patient after change in shift. She is poorly responsive, staring off into space, seems to have some rigors/coarse tremors generally but seems to be quite cold. Respiratory effort is some decreased. She does have crackles in her left base. Patient was briefly examined at 9:25 AM. 9:30 AM, POC creatinine 5.7. Patient is already had Vanco, Zosyn and blood cultures ordered. Already received DuoNeb. Blood gas comes back now with pH normal at 7.39 and a PCO 2 of 40 (venous blood gas). Base excess -0.7 and bicarb 24.2 with an SaO2 of 69.9. Hematocrit is 43%. This reportedly on oxygen mask at 13 L/min with a pulse ox of 89%. 9:35 AM - running 89 to 90% on 12 L. We will try BiPAP. - Related Data Home Medications Medication Instructions Recorded Confirmed Albuterol Sulfate [Ventolin] 2.5 mg INH BIDP PRN 04/14/19 06/28/19 Divalproex Sodium [Depakote] 125 mg PO BID 04/14/19 06/28/19 Divalproex Sodium [Depakote] 125 mg PO DAILY 04/14/19 06/28/19 Famotidine [Pepcid] 40 mg PO DAILY 04/14/19 06/28/19 Levothyroxine [Synthroid] 88 mcg PO QAMAC 04/14/19 06/28/19 Mv-Mn/FA/D3/Lycopene/Lut/Coq10 1 tab PO DAILY 04/14/19 06/28/19 [Daily Multivitamin Capsule] Propylene Glycol/Peg 400/Pf 1 gtt OU DAILY 04/14/19 06/28/19 [Systane 0.3-0.4% Eye Drop] Acetaminophen [Tylenol] 650 mg PO BID 06/28/19 06/28/19 Allergies Allergy/AdvReac Type Severity Reaction Status Date / Time pantoprazole Allergy Unknown Other Verified 06/28/19 08:00 Past Medical History - Past Medical History Medical history: Reports: dementia, GERD, seizures, thyroid disease Surgical history ED: Reports: hip replacement - Social History smoking status: Never smoker Physical Exam Limitations: altered mental status, physical limitation General appearance: obtunded, other (Some shaking particularly right upper extremity. Staring into space. Unable to get more information from her. Is awake.) Head: atraumatic, normocephalic Eye: Present: EOMI ENT: Present: mucous membranes dry Neck: Present: trachea midline Respiratory: Present: rales/crackles (Left base) Cardiovascular: Present: tachycardia Neurological: Present: other (Nonverbal at this point.) Skin: Present: cool, dry Course Vital Signs Temperature 99.0 F 06/28/19 08:00 Pulse Rate 123 H 06/28/19 08:00 Respiratory Rate 28 H 06/28/19 08:00 Blood Pressure 156/129 06/28/19 08:00 Pulse Oximetry (%) 90 06/28/19 08:00 Temperature 99.0 F 06/28/19 08:00 Pulse Rate 94 H 06/28/19 11:55 Respiratory Rate 25 H 06/28/19 11:55 Blood Pressure 79/60 06/28/19 11:55 Pulse Oximetry (%) 100 06/28/19 11:55 Medical Decision Making - [facility] Narrative Medical decision making narrative: 10:39 AM - patient's blood pressures have gradually declined in spite of nearly 2 L of fluid replacement. She is getting her antibiotics currently. Her mother is not here to discuss further with her. With her systolic blood pressures now in the 70s, will add Levophed and titrate. She is on BiPAP now. CT of the chest results pending. 10:44 AM - I spoke with Dr. John Paul Gonsalez, radiologist, who points out that there is central airway problems that involve significant narrowing and near occlusion including in the bronchus intermedius and both sides. There is significant pneumonia in the right lower lobe worse than left lower lobe with so me also on the right middle lobe etc. However, there is a near occlusion. This could be inflammatory versus neoplastic but suspicious for inflammatory pathology due to the multiple areas. Mucus plugging could be contributing. Recommendation to have adult education professional be involved and consider bronchoscopy. 11:44 AM - I spoke with director distribution, Dr. Fountain, who indicates he be certainly willing to consult on patient. Probably markedly dehydrated and fluids as the primary treatment given that her sodium is 156. 12:23 PM - I spoke with Dr. Alcon Day, adult education professional, who on reviewing her situation points out that she is too sick right now for bronchoscopy, would end up on ventilator afterwards etc. He is available for consultation if needed. Call out to hospitalist. 12:30 PM - patient's mother, Justina, in route from [place], called back. We got caught off at around 12:33 PM. She was saying something about comfort measures but I was not able to understand or get any specific new direction. 12:43 PM - I spoke briefly with Dr. Bhandari, hospitalist. 12:44 PM - I spoke with patient's daughter Justina again who is in route but still 45 minutes away. She would like to have patient go ahead and be treated with medical treatments but short of major interventions or aggressive measures until these can be further evaluated. She is in agreement to have patient go to ICU, be on antibiotics, have IV fluids, and blood pressure support medication for the time being. She is aware that if things further degenerate that the prognosis is exceedingly poor. She would like to take each new intervention one at a time to the side or decline. She is accompanied by Olga and and who are from the local [place] who came to [place] to help her calm to this hospital to see her daughter. - Lab Data Lab results reviewed: Yes I reviewed the patient's lab results. Result diagrams: 06/28/19 08:11 06/28/19 08:10 Lab Results 06/28/19 06/28/19 06/28/19 Range/Units 08:10 08:10 08:11 WBC 15.9 H (4.5-11.0) K/mcL RBC 4.49 (4.00-5.20) M/mcL Hgb 14.9 (12.0-15.0) g/dL Hct 46.5 (36.0-48.0) % POC Hct (36.0-48.0) % MCV 103.7 H (80.0-100.0) fL MCH 33.3 (26.0-34.0) pg MCHC 32.1 (31.0-36.0) g/dL RDW 16.5 H (11.5-14.5) % Plt Count 175 (140-440) K/mcL MPV 11.3 H (7.4-10.4) fL Gran % 83.6 H (38.0-78.0) % Lymph % (Auto) 4.6 L (15.5-49.0) % [place] % (Auto) 11.6 (1.0-12.0) % Eos % (Auto) 0 (0.0-7.0) % Baso % (Auto) 0.2 (0.0-2.0) % Gran # 13.3 H (1.8-8.0) K/mcL Lymph # (Auto) 0.7 L (1.5-4.8) K/mcL [place] # (Auto) 1.8 H (0.1-0.9) K/mcL Eos # (Auto) 0 (0.0-0.7) K/mcL Baso # (Auto) 0 (0.0-0.3) K/mcL PT (11.9-14.5) sec INR (0.9-1.1) APTT (20-37) sec VBG Lactic Acid 3.0 H (0.5-2.0) mmol/L POC Sodium (133-145) mmol/L Sodium 156 H (133-145) mmol/L POC Potassium (3.3-5.1) mmol/L Potassium 5.1 (3.3-5.1) mmol/L POC Chloride (96-108) mmol/L Chloride 112 H (96-108) mmol/L Carbon Dioxide 22 (22-30) mmol/L POC Total CO2 (22-30) mmol/L Anion Gap 22.0 H (8-16) POC BUN (6-20) mg/dl BUN 104 H* (6-20) mg/dl Creatinine 5.8 H* (0.6-1.1) mg/dl POC Creatinine (0.6-1.1) mg/dl GFR Calculation 8 Glucose 142 H (70-105) mg/dL POC Glucose (70-105) mg/dL Calcium 9.9 (8.6-10.4) mg/dl POC WB Ioniz Calcium (1.16-1.32) mmol/L Magnesium (1.6-2.5) mg/dL Total Bilirubin 0.8 (0.0-1.0) mg/dL AST 154 H (0-37) U/l ALT 128 H (0-40) U/l Alkaline Phosphatase 82 (39-117) U/L Total Protein 8.0 (5.9-8.4) gm/dL Albumin 3.5 (3.2-5.2) gm/dL Globulin 4.5 H (2.2-3.7) gm/dL Albumin/Globulin Ratio 0.8 L (1.0-2.3) Procalcitonin (<0.10) ng/mL 06/28/19 06/28/19 06/28/19 Range/Units 09:20 09:20 09:22 WBC (4.5-11.0) K/mcL RBC (4.00-5.20) M/mcL Hgb (12.0-15.0) g/dL Hct (36.0-48.0) % POC Hct 41.0 (36.0-48.0) % MCV (80.0-100.0) fL MCH (26.0-34.0) pg MCHC (31.0-36.0) g/dL RDW (11.5-14.5) % Plt Count (140-440) K/mcL MPV (7.4-10.4) fL Gran % (38.0-78.0) % Lymph % (Auto) (15.5-49.0) % [place] % (Auto) (1.0-12.0) % Eos % (Auto) (0.0-7.0) % Baso % (Auto) (0.0-2.0) % Gran # (1.8-8.0) K/mcL Lymph # (Auto) (1.5-4.8) K/mcL [place] # (Auto) (0.1-0.9) K/mcL Eos # (Auto) (0.0-0.7) K/mcL Baso # (Auto) (0.0-0.3) K/mcL PT 18.9 H (11.9-14.5) sec INR 1.6 H (0.9-1.1) APTT 32 (20-37) sec VBG Lactic Acid (0.5-2.0) mmol/L POC Sodium 156 H (133-145) mmol/L Sodium (133-145) mmol/L POC Potassium 4.9 (3.3-5.1) mmol/L Potassium (3.3-5.1) mmol/L POC Chloride 121 H (96-108) mmol/L Chloride (96-108) mmol/L Carbon Dioxide (22-30) mmol/L POC Total CO2 24 (22-30) mmol/L Anion Gap (8-16) POC BUN 94 H (6-20) mg/dl BUN (6-20) mg/dl Creatinine (0.6-1.1) mg/dl POC Creatinine 5.7 H* (0.6-1.1) mg/dl GFR Calculation Glucose (70-105) mg/dL POC Glucose 132 H (70-105) mg/dL Calcium (8.6-10.4) mg/dl POC WB Ioniz Calcium 1.15 L (1.16-1.32) mmol/L Magnesium 3.4 H (1.6-2.5) mg/dL Total Bilirubin (0.0-1.0) mg/dL AST (0-37) U/l ALT (0-40) U/l Alkaline Phosphatase (39-117) U/L Total Protein (5.9-8.4) gm/dL Albumin (3.2-5.2) gm/dL Globulin (2.2-3.7) gm/dL Albumin/Globulin Ratio (1.0-2.3) Procalcitonin 4.05 (<0.10) ng/mL - Radiology Data Radiology results reviewed: Yes I reviewed the patient's radiology results. - EKG Data EKG #1 EKG attestation: Yes There are no EKG findings of acute coronary syndrome, Yes This EKG will be read by vice president sales and marketing EKG shows normal: sinus rhythm Rate: tachycardia Disposition Pt seen by RETAIL MANAGEMENT TRAINEE/PA only: No Clinical Impression: Abnormal CT scan, chest, Hypernatremia, DNR no code (do not resuscitate) Bilateral pneumonia Qualifiers: Pneumonia type: due to unspecified organism Lung location: lower lobe of lung Qualified Code(s): J18.9 - Pneumonia, unspecified organism Acute renal failure Qualifiers: Acute renal failure type: unspecified Qualified Code(s): N17.9 - Acute kidney f ailure, unspecified Sepsis Qualifiers: Sepsis type: sepsis due to unspecified organism Sepsis acute organ dysfunction status: with acute organ dysfunction Summary: See "MEDICAL DECISION MAKING" above. Patient with pneumonia, renal failure, airway narrowing (inflammatory?), Severe hypernatremia, hypotension, etc. Conclusion is that she is still DNR but interventions medically desired per my conversation with patient's mother Justina. I spoke with Dr. Bhandari, hospitalist who kindly accepts her care. We will let Dr. Fountain know that consultation desired. Patient's mother is at least somewhat aware of her rather poor prognosis. Disposition: Xfer As Inpt ([facility]) Condition: Critical Referrals: Rubén Goncalves MD [Primary Care Provider] -
[2019-06-28 09:35] LABS: ALT/SGPT 128 U/l (0-40); AST/SGOT 154 U/l (0-37); Albumin 3.5 gm/dL (3.2-5.2); Albumin/Globulin Ratio 0.8 (1.0-2.3); Alkaline Phosphatase 82 U/L (39-117); Bilirubin,Total 0.8 mg/dL (0.0-1.0); Calcium 9.9 mg/dl (8.6-10.4); Carbon Dioxide 22 mmol/L (22-30); Globulin 4.5 gm/dL (2.2-3.7); Glucose 142 mg/dL (70-105)
[2019-06-28 09:37] LABS: Blood Urea Nitrogen 104 mg/dl (6-20); Chloride 112 mmol/L (96-108); Glomerular Filtration Rate 8
--- NOTE | 2019-06-28 09:51 | XRay Report ---
HISTORY: Hypoxia cough and cold symptoms FINDINGS: There are moderate-sized alveolar infiltrates in both lower lobes with milder involvement centrally in the right lung. These have become worse since prior exam done on 04/14/19. There is no apparent mass or adenopathy. No pleural effusion is present. The heart size is normal. IMPRESSION: Moderate bilateral pneumonia Interpreted and Authenticated by: John Paul Gonsalez 06/28/19
[2019-06-28 10:34] LABS: INR 1.6 (0.9-1.1); Prothrombin Time 18.9 sec (11.9-14.5)
--- NOTE | 2019-06-28 10:47 | Cat Scan Report ---
History: Pneumonia and shortness of breath TECHNIQUE: Chest was imaged without contrast. Sagittal, coronal and axial MIPS images were created. The radiation exposure was limited using dose reduction technology. FINDINGS: There is a large densely consolidating alveolar infiltrate in the right lower lobe with a moderate size consolidating infiltrate posteriorly medially in the left lower lobe. Milder alveolar infiltrates are present in the right middle and right upper lobes. There is no pleural effusion. No adenopathy is detected on this nonenhanced study. Is no evidence of pulmonary abscess. The heart is normal in size and contour. The lumen of the trachea and both left and right mainstem bronchi are abnormally small. The bronchus intermedius is partially occluded. IMPRESSION: Moderately severe bilateral pneumonia, right worse than left Abnormally narrowed airways from the upper thoracic trachea through the bronchus intermedius with partial occlusion of the uncus intermedius. Bronchoscopy and biopsy is recommended. Dr. Young was called with the results Interpreted and Authenticated by: John Paul Gonsalez 06/28/19
[2019-06-28] MEDS ORDERED: NOREPINEPHRINE BITARTRATE 16 MG in 0.9 % SODIUM CHLORIDE 234 ML IV SCH (11:30)
[2019-06-28] MEDS ORDERED: 0.9 % SODIUM CHLORIDE 250 ML IV SCH (11:30)
--- NOTE | 2019-06-28 13:26 | Internal Med History&Physical ---
Medical - H&P: HPI Patient information: Note initiated : 06/28/19 at 1:21 pm Service Date, if different from initiated Date: [] Patient: Tati Mena a 54 y/o F admitted on for Cold symptoms. Chief Complaint: [] History of present illness: Ms. Mena is a 54 year old F Patient was found to be poorly responsive by staff and appeared to have fevers and chills with rigors. Respiratory effort was poor. And she had a productive cough with hypoxia. In the ED she was tachycardic and tachypneic. She is quite hyponatremic and had a significant acute kidney injury. Elevated lactate and procalcitonin. She continued to decline despite 2 L of fluid. Start antibiotics she was placed on BiPAP. CT imaging was severe pneumonia. There were some abnormal airway findings on the CT and this was discussed with Dr. Day who felt that she was too high risk for him to undergo bronchoscopy. It was discussed with Dr. Fountain line director as well. She was eventually placed on vasopressorsblood pressure continue to to decline. Her mother is traveling from [place] currently. Case was discussed with ER physician and the daughter who was okay with current measures including the vasopressors but if she declines and to make her comfort. Upon my visit patient is minimally responsive on the BiPAP and vasopressors are being increased. Very guarded prognosis. Primary care physician Dr. Goncalves aware of situation. Unable to gather review of systems given her current state and chronic state Medical - H&P: PMH Medical history: Medical history: Past medical history: Down syndrome Seizure disorder GERD Hypothyroidism Past surgical history: Left hip surgery Social history: Patient resides at [facility] and is bedbound and has been such since July. She is essentially nonverbal occasionally will say a word or 2. Her mother who resides [place] is her POA Medical - H&P: Meds Home Medications Medication Instructions Recorded Confirmed Type Albuterol Sulfate [Ventolin] 2.5 mg INH BIDP PRN 04/14/19 06/28/19 History Divalproex Sodium [Depakote] 125 mg PO BID 04/14/19 06/28/19 History Divalproex Sodium [Depakote] 125 mg PO DAILY 04/14/19 06/28/19 History Famotidine [Pepcid] 40 mg PO DAILY 04/14/19 06/28/19 History Levothyroxine [Synthroid] 88 mcg PO QAMAC 04/14/19 06/28/19 History Mv-Mn/FA/D3/Lycopene/Lut/Coq10 1 tab PO DAILY 04/14/19 06/28/19 History [Daily Multivitamin Capsule] Propylene Glycol/Peg 400/Pf 1 gtt OU DAILY 04/14/19 06/28/19 History [Systane 0.3-0.4% Eye Drop] Acetaminophen [Tylenol] 650 mg PO BID 06/28/19 06/28/19 History Allergies Allergy/AdvReac Type Severity Reaction Status Date / Time pantoprazole Allergy Unknown Other Verified 06/28/19 08:00 Medical - H&P: Exam - Constitutional Vitals: Temp Pulse Resp BP Pulse Ox 99.0 F 96 H 11 L 91/52 97 06/28/19 08:00 06/28/19 12:56 06/28/19 12:56 06/28/19 12:51 06/28/19 12:56 Exam: General: poorly responsive, No acute Distress Eyes/N/T: PERRL, Head/Neck: neck supple, normocephalic atraumatic CV: tachy but regular, No murmurs, Pulm: Bilateral rhonchi, no wheezing abd: soft, nontender, +BS x4 Ext: no clubbing/cyanosis/edema Neuro: Minimally responsive. does not follow commands or move extremities to touch. skin: warm/dry Medical - H&P: Reslt - Labs CBC & Chem 7: 06/28/19 08:11 06/28/19 08:10 Labs: Short CBC 06/28/19 Range/Units 08:11 WBC 15.9 H (4.5-11.0) K/mcL Hgb 14.9 (12.0-15.0) g/dL Hct 46.5 (36.0-48.0) % Plt Count 175 (140-440) K/mcL BMP 06/28/19 08:10 Sodium 156 H Potassium 5.1 Chloride 112 H Carbon Dioxide 22 BUN 104 H* Creatinine 5.8 H* Glucose 142 H Calcium 9.9 Liver Function 06/28/19 Range/Units 08:10 Total Bilirubin 0.8 (0.0-1.0) mg/dL AST 154 H (0-37) U/l ALT 128 H (0-40) U/l Alkaline Phosphatase 82 (39-117) U/L Albumin 3.5 (3.2-5.2) gm/dL Medical - H&P: A/P - Narrative A/P Narrative: A: *Septic shock: *PNA, likely recurrent Aspiration: *Acute hypoxic Resp failure: 2/2 above -on bipap *Mod oropharyngeal dysphagia: *Dehydration: *JANE: *Down's Syndrome: *Deconditioning/debility/poor functional status: Has been bedbound since July *Seizure disorder: *GERD: *Hypothyroidism: *Transaminitis: 2/2 hypoxia *Goals of care: Poor prognosis, further discussion with mother P: -vasopressors wean as able -wean bipap as able, f/u ABG -vanc/Zosyn, pending SC/BC -D5w, f/u sodium -f/u lactate, trend PCT -Nephro consult -monitor UOP -further d/w POA -NPO, diet per ST eval when/if able -CM -ppx: lovenox DNR/limited measures Mother is POA
[2019-06-28] MEDS ORDERED: LORazepam 2 MG/ML VIAL ONE (13:34)
[2019-06-28] MEDS ORDERED: levETIRAcetam 500 MG in 0.9 % SODIUM CHLORIDE 100 ML IV SCH (13:37)
[2019-06-28] MEDS ORDERED: LORazepam 2 MG/ML VIAL IV ONE (13:39)
[2019-06-28] MEDS ORDERED: LORazepam 2 MG/ML VIAL IV PRN (14:20)
[2019-06-28] MEDS ORDERED: VANCOMYCIN PER PHARMACY IV ONE (14:20)
[2019-06-28] MEDS ORDERED: ACETAMINOPHEN 325 MG TABLET PO PRN (14:20)
[2019-06-28] MEDS ORDERED: ONDANSETRON 4 MG/2 ML VIAL IV PRN (14:20)
[2019-06-28] MEDS ORDERED: DEXTROSE 50% 50 ML VIAL IV PRN (14:20)
[2019-06-28] MEDS ORDERED: PIPERACILLIN SODIUM/TAZOBACTAM 3.375 GM in DEXTROSE 5% IN WATER 50 ML IV SCH (14:20)
[2019-06-28] MEDS ORDERED: DEXTROSE 31 GM ORAL.SUSP PO PRN (14:20)
[2019-06-28] MEDS: 0.9 % SODIUM CHLORIDE 10 ML SYRINGE IV SCH ×2 (14:46→22:24)
[2019-06-28] MEDS: DEXTROSE 5% IN WATER 1,000 ML IV SCH ×3 (14:46→22:22)
[2019-06-28] MEDS: 0.9 % SODIUM CHLORIDE 250 ML IV SCH ×3 (14:47→15:08)
[2019-06-28] MEDS: VASOPRESSIN 20 UNIT in DEXTROSE 5% IN WATER 99 ML IV SCH ×2 (14:50→20:53)
--- NOTE | 2019-06-28 14:55 | Nephrology Consult Note ---
History of Present Illness - Reason for Consult Patient information: Note initiated : 06/28/19 at 2:54 pm Service Date, if different from initiated Date: [] Patient: Tati Mena a 54 y/o F admitted on 06/28/19 for Cold symptoms. Chief Complaint: [] Consult date: 06/28/19 acute renal failure, hypernatremia Requesting physician: Owen Somers - Chief Complaint [place] - History of Present Illness Ms. Mena is a 54 year old F from [facility] for productive cough with low oxygen saturations with advanced dementia and a seizure disorder who presented after decrease from baseline level of mentation associated with possible rigors and chills. In the ED she was tachycardic and tachypneic. She is quite hyponatremic and had a significant acute kidney injury. Elevated lactate and procalcitonin. She is felt to have a pulmonary process c/w pneumonia As she is unable to do for herself, she has a huge H2O deficit hypernatremia, dehydration => hypotension and presumed Acute prerenal azotemia but with unknown duration of hypotension, ATN is also a good possibility (or a mix of the two). She continued to decline despite 2 L of fluid. Start antibiotics she was placed on BiPAP. CT imaging was severe pneumonia. There were some abnormal airway findings on the CT and this was discussed with Dr. Day who felt that she was too high risk for him to undergo bronchoscopy. It was discussed with Dr. Fountain manager roofing as well. She was eventually placed on vasopressorsblood pressure continue to to decline. Her mother is traveling from [place] currently. Case was discussed with ER physician and the daughter who was okay with current measures including the vasopressors but if she declines and to make her comfort. Upon my visit patient is minimally responsive on the BiPAP and vasopressors are being increased. Selected Entries 06/28/19 08:00 06/28/19 08:55 06/28/19 09:16 Blood Pressure 156/129 156/107 130/102 06/28/19 09:46 06/28/19 10:01 06/28/19 10:41 Blood Pressure 73/29 100/76 75/47 Laboratory Tests 06/28/19 06/28/19 08:10 09:20 Sodium 156 H Potassium 5.1 Chloride 112 H Carbon Dioxide 22 Anion Gap 22.0 H BUN 104 H* Creatinine 5.8 H* GFR Calculation 8 Glucose 142 H Calcium 9.9 Total Bilirubin 0.8 AST 154 H ALT 128 H Alkaline Phosphatase 82 Total Protein 8.0 Albumin 3.5 Globulin 4.5 H Procalcitonin 4.05 CXR 06/28/19 Estimated Water Deficit is 3 liters. Normal saline replaces vascular and then interstial fluid but not total H2O deficit Review of Systems ROS unobtainable: due to mental status All systems PM: reviewed and no additional remarkable complaints except as stated Past History Past medical history: Downs syndrome Reactive airway disease / asthma Seizure disorder on depakote Early onset dementia starting 6 months post hip surgery Home Medications Medication Instructions Recorded Confirmed Type Albuterol Sulfate [Ventolin] 2.5 mg INH BIDP PRN 04/14/19 06/28/19 History Divalproex Sodium [Depakote] 125 mg PO BID 04/14/19 06/28/19 History Divalproex Sodium [Depakote] 125 mg PO DAILY 04/14/19 06/28/19 History Famotidine [Pepcid] 40 mg PO DAILY 04/14/19 06/28/19 History Levothyroxine [Synthroid] 88 mcg PO QAMAC 04/14/19 06/28/19 History Mv-Mn/FA/D3/Lycopene/Lut/Coq10 1 tab PO DAILY 04/14/19 06/28/19 History [Daily Multivitamin Capsule] Propylene Glycol/Peg 400/Pf 1 gtt OU DAILY 04/14/19 06/28/19 History [Systane 0.3-0.4% Eye Drop] Acetaminophen [Tylenol] 650 mg PO BID 06/28/19 06/28/19 History Allergies Allergy/AdvReac Type Severity Reaction Status Date / Time pantoprazole Allergy Unknown Other Verified 06/28/19 08:00 Past surgical history: Hip surgery Past family history: 1 sister of glioblastoma 1 brother committed suicide 2 remaining sibs alive Past social history: Resided at home with mother and could do all ADLs till ~ 1 yr ago when could no longer toilet herself and placed in NH DNR status but agree to simple interventions of IVF and abx Medications and Allergies Home Medications Medication Instructions Recorded Confirmed Type Albuterol Sulfate [Ventolin] 2.5 mg INH BIDP PRN 04/14/19 06/28/19 History Divalproex Sodium [Depakote] 125 mg PO BID 04/14/19 06/28/19 History Divalproex Sodium [Depakote] 125 mg PO DAILY 04/14/19 06/28/19 History Famotidine [Pepcid] 40 mg PO DAILY 04/14/19 06/28/19 History Levothyroxine [Synthroid] 88 mcg PO QAMAC 04/14/19 06/28/19 History Mv-Mn/FA/D3/Lycopene/Lut/Coq10 1 tab PO DAILY 04/14/19 06/28/19 History [Daily Multivitamin Capsule] Propylene Glycol/Peg 400/Pf 1 gtt OU DAILY 04/14/19 06/28/19 History [Systane 0.3-0.4% Eye Drop] Acetaminophen [Tylenol] 650 mg PO BID 06/28/19 06/28/19 History Allergies Allergy/AdvReac Type Severity Reaction Status Date / Time pantoprazole Allergy Unknown Other Verified 06/28/19 08:00 Exam - Vital Signs Vital signs: Temp Pulse Resp BP Pulse Ox 37.3 C H 93 H 23 H 94/47 93 06/28/19 14:00 06/28/19 14:40 06/28/19 14:40 06/28/19 14:10 06/28/19 14:40 - General Appearance General appearance: well-developed, well-nourished, comatose EENT: mucous membranes dry Neck: no JVD, no carotid bruit Respiratory: rhonchi (On bipap) Cardiology: no murmurs, no rub, no gallops, regular rate, rapid rhythm Gastrointestinal: normoactive bowel sounds, no tenderness, no guarding Integumentary: no rash, warm and dry Neurologic: no asterixis Musculoskeletal: deformities (Appearance of an adult with Down's) Results - Lab Results 06/28/19 08:11 06/28/19 08:10 Most recent lab results Calcium 9.9 mg/dl (8.6-10.4) 06/28/19 08:10 Magnesium 3.4 mg/dL (1.6-2.5) H 06/28/19 09:20 Assessment and Plan (1) Acute renal failure 1. Hydrate with D5W as she has had 3 liters of NS 2. FeNa, U/A, and search for crystals 3. Expect renal recovery in 72 hours if prerenal, 1-2 weeks if ATN provide patient stabalizes and improves. Status: Acute Priority: High Comment: Prerenal azotemia +/- ATN Qualifiers: Acute renal failure type: unspecified Qualified Code(s): N17.9 - Acute kidney failure, unspecified (2) Hypernatremia 1. 3 liter free H2O deficit to be replaced with D5W IV over 24 hours 2. Serial labs and watch for refeeding hypokalemia, hypophosphatemia and hypomagnesimia Status: Acute Priority: High - Narrative A/P Narrative: 30 min face to face with mother explaining problems, expected course and prognosis.
[2019-06-28] MEDS: INSULIN LISPRO 1 UNIT/0.01 ML UNIT SQ SCH ×2 (15:06→21:13)
[2019-06-28] MEDS ORDERED: VANCOMYCIN PER PHARMACY IV SCH (15:15)
[2019-06-28] MEDS: PIPERACILLIN SODIUM/TAZOBACTAM 2.25 GM in DEXTROSE 5% IN WATER 50 ML IV SCH ×2 (15:51→20:10)
[2019-06-28 16:54] LABS: Blood Urea Nitrogen 89 mg/dl (6-20); Calcium 8.2 mg/dl (8.6-10.4); Carbon Dioxide 19 mmol/L (22-30); Glomerular Filtration Rate 12; Glucose 269 mg/dL (70-105)
[2019-06-28 16:57] LABS: Chloride 115 mmol/L (96-108)
[2019-06-28 18:11] LABS: Appearance,Urine HAZY; Bacteria,Urine FEW /hpf (0); Bilirubin,Urine NEG (NEG); Color,Urine AMBER; Culture Indicated,Urine NO; Glucose,Urine (UA) NEGATIVE (NEG); Ketones,Urine NEG (NEG); Leukocyte Esterase,Urine NEG /uL (NEG); Mucus,Urine FEW /hpf (0); Nitrate,Urine NEG (NEG); Protein,Urine 30 mg/dL (NEG); Specific Gravity,Urine 1.023 (1.000-1.035); Uric Acid Crystals,Urine FEW /hpf (0); Urine Blood >=1.0 mg/dL (<0.03); Urine Hyaline Cast 8 /lpf (0-2); Urine RBC 13 /hpf (0-1); Urine Squamous Epithelial Cell 9 /hpf (0-4); Urine WBC 7 /hpf (0-4); Urobilinogen,Urine NEG (NEG)
[2019-06-28] MEDS: IPRATROPIUM/ALBUTEROL 3 ML AMPUL.NEB NEB SCH (18:52)
[2019-06-28] MEDS ORDERED: VASOPRESSIN 20 UNIT/ML VIAL ONE (20:48)
[2019-06-28] MEDS: DOCUSATE SODIUM 100 MG CAPSULE PO SCH (21:02)
[2019-06-28] MEDS: DIVALPROEX 125 MG CAP.SPRINK PO SCH (21:02)
[2019-06-28] MEDS: FAMOTIDINE/PF 20 MG/2 ML VIAL IV SCH (21:13)
[2019-06-28] MEDS: HEPARIN 5,000 UNIT/ML VIAL SQ SCH (21:13)
[2019-06-28 22:30] LABS: Albumin 2.5 gm/dL (3.2-5.2); Blood Urea Nitrogen 88 mg/dl (6-20); Calcium 8.2 mg/dl (8.6-10.4); Carbon Dioxide 20 mmol/L (22-30); Glomerular Filtration Rate 14; Glucose 386 mg/dL (70-105); Phosphorous 4.4 mg/dL (2.7-4.5)
[2019-06-28 22:31] LABS: Chloride 111 mmol/L (96-108)
[2019-06-28] MEDS: levETIRAcetam 500 MG in 0.9 % SODIUM CHLORIDE 100 ML IV SCH (23:15)
[2019-06-29] MEDS: PIPERACILLIN SODIUM/TAZOBACTAM 2.25 GM in DEXTROSE 5% IN WATER 50 ML IV SCH ×2 (00:10→05:34)
[2019-06-29] MEDS: IPRATROPIUM/ALBUTEROL 3 ML AMPUL.NEB NEB SCH ×2 (01:05→07:34)
[2019-06-29] MEDS ORDERED: VASOPRESSIN 20 UNIT/ML VIAL ONE (02:09)
[2019-06-29] MEDS: VASOPRESSIN 20 UNIT in DEXTROSE 5% IN WATER 99 ML IV SCH ×2 (02:12→08:05)
[2019-06-29] MEDS: 0.9 % SODIUM CHLORIDE 250 ML IV SCH ×3 (03:45→03:46)
[2019-06-29] MEDS: DEXTROSE 5% IN WATER 1,000 ML IV SCH ×2 (03:46→06:31)
[2019-06-29] MEDS: 0.9 % SODIUM CHLORIDE 10 ML SYRINGE IV SCH ×5 (05:35→22:08)
--- NOTE | 2019-06-29 07:00 | Internal Med Progress Note ---
Medical - PN: Subj Patient information: Note initiated : 06/29/19 at 6:55 am Service Date, if different from initiated Date: [] Patient: Tati Mena a 54 y/o F admitted on 06/28/19 for Cold symptoms. Chief Complaint: [] Interval history: Ms. Mena is a 54 year old F Patient was found to be poorly responsive by staff and appeared to have fevers and chills with rigors. Respiratory effort was poor. And she had a productive cough with hypoxia. In the ED she was tachycardic and tachypneic. She is quite hyponatremic and had a significant acute kidney injury. Elevated lactate and procalcitonin. She continued to decline despite 2 L of fluid. Start antibiotics she was placed on BiPAP. CT imaging was severe pneumonia. There were some abnormal airway findings on the CT and this was discussed with Dr. Day who felt that she was too high risk for him to undergo bronchoscopy. It was discussed with Dr. Fountain pre press operator as well. She was eventually placed on vasopressorsblood pressure continue to to decline. Her mother is traveling from [place] currently. Case was discussed with ER physician and the daughter who was okay with current measures including the vasopressors but if she declines and to make her comfort. Upon my visit patient is minimally responsive on the BiPAP and vasopressors are being increased. Very guarded prognosis. Primary care physician Dr. Goncalves aware of situation. 06/29 Patient continued on BiPAP and dual vasopressors last night. Laboratory work does show improvement. Cultures with MRSA. Had a another discussion with her mother, BC. Patient originally a DNR comfort care focus but with the sudden event she was treated aggressively with BiPAP and vasopressors. We continued this through the night. Mother discusses the general decline in her daughter and lack of quality of life. And with this latest insult if we were able to pull her through it she would be even more debilitated and likely return sooner than later. After a long conversation it was decided to transition to comfort care focus only. Patient will continue current regimen until family arrives later this morning and then will transition to comfort care only. Unable to gather review of systems given her current state and chronic state - Constitutional Vitals: Vital Signs Temp Pulse Resp BP Pulse Ox 98.1 F 62 21 94/47 100 06/29/19 04:00 06/29/19 05:01 06/29/19 05:01 06/29/19 04:01 06/29/19 05:01 Period Temp Pulse Resp BP Sys/Ramesh Pulse Ox Last 24 Hr 98.1 F-99.2 F 62-123 0-38 58-167/12-130 73-100 Intake and Output 06/28/19 06/29/19 06/29/19 21:59 05:59 13:59 Intake Total 1535 1391 60 Output Total 400 737 50 Balance 1135 654 10 Weight 63.14 kg Intake & Output: Intake & Output 06/28/19 06/29/19 06/29/19 21:59 05:59 13:59 Intake Total 1535 1391 60 Output Total 400 737 50 Balance 1135 654 10 Weight 63.14 kg Intake: IV 1535 1391 60 Sodium Chloride 0.9% 250 ml @ 157 20 mls/hr IV .[id number] Y[facility] Rx#: [id number] Dextrose 5% in Water 1,000 ml @ 1000 1000 150 mls/hr IV .Q6H40M [facility] Rx#: [id number] Levophed 16 mg In Sodium 73 140 60 Chloride 0.9% 234 ml @ 10 MCG/ MIN 9.375 mls/hr IV Q24H [facility] Rx #:[id number] Zosyn 2.25 gm In Dextrose 5% in 100 50 Water 50 ml @ 100 mls/hr IV Q6H [facility] Rx#:[id number] Vasostrict 20 Unit In Dextrose 100 96 5% in Water 99 ml @ 0.04 UNIT/ MIN 12 mls/hr IV Q8H [facility] Rx#: [id number] Keppra 500 mg In Sodium 105 105 Chloride 0.9% 100 ml @ 200 mls/ hr IV Q12H [facility] Rx#:[id number] Oral 0 Output: Urine Catheter Amount 400 737 50 Void Amount 0 Other: Percent of Meal Consumed 0% Urine Appearance Cloudy Cloudy Sediment Uretheral (Haro) Cloudy Sediment Urine Color Dark Valeria Dark Yellow Dark Yellow Uretheral (Haro) Dark Yellow Urine Odor Strong Strong Uretheral (Haro) Strong Stool Size Moderate Small Stool Color Brown Brown Yellow Stool Consistency Soft Soft Loose Liquid Loose # of times incontinent of 1 Bowels Exam: General: poorly responsive, No acute Distress Eyes/N/T: pupils reactive but sluggish Head/Neck: neck supple, normocephalic atraumatic CV: RRR, No murmurs, Pulm: mild b/l lateral rhonchi, no wheezing abd: soft, nontender, +BS x4 Ext: no clubbing/cyanosis/edema Neuro: grimaces to pain otherwise unresponsive. skin: warm/dry Medical - PN: Obj Da - Labs CBC & Chem 7: 06/29/19 04:15 06/29/19 04:15 Labs: Abnormal Lab Results 06/28/19 06/28/19 06/28/19 21:20 16:58 15:34 WBC MCV RDW MPV Gran % Lymph % (Auto) Gran # Lymph # (Auto) Coleman # (Auto) PT INR VBG Lactic Acid 3.4 H POC Sodium Sodium 146 H POC Chloride Chloride 111 H Carbon Dioxide 20 L Anion Gap POC BUN BUN 88 H Creatinine 3.6 H POC Creatinine Glucose 386 H POC Glucose Calcium 8.2 L POC WB Ioniz Calcium Magnesium AST ALT Albumin 2.5 L Globulin Albumin/Globulin Ratio Urine Protein 30 A Urine Occult Blood >=1.0 A Urine RBC 13 H Urine WBC 7 H Ur Squamous Epith Cells 9 H Uric Acid Crystals Few A Urine Bacteria Few A Hyaline Casts 8 H 06/28/19 06/28/19 06/28/19 15:34 09:22 09:20 WBC MCV RDW MPV Gran % Lymph % (Auto) Gran # Lymph # (Auto) Coleman # (Auto) PT 18.9 H INR 1.6 H VBG Lactic Acid POC Sodium 156 H Sodium 151 H POC Chloride 121 H Chloride 115 H Carbon Dioxide 19 L Anion Gap 17.0 H POC BUN 94 H BUN 89 H Creatinine 4.0 H POC Creatinine 5.7 H* Glucose 269 H POC Glucose 132 H Calcium 8.2 L POC WB Ioniz Calcium 1.15 L Magnesium 3.4 H AST ALT Albumin Globulin Albumin/Globulin Ratio Urine Protein Urine Occult Blood Urine RBC Urine WBC Ur Squamous Epith Cells Uric Acid Crystals Urine Bacteria Hyaline Casts 06/28/19 06/28/19 06/28/19 08:11 08:10 08:10 WBC 15.9 H MCV 103.7 H RDW 16.5 H MPV 11.3 H Gran % 83.6 H Lymph % (Auto) 4.6 L Gran # 13.3 H Lymph # (Auto) 0.7 L Coleman # (Auto) 1.8 H PT INR VBG Lactic Acid 3.0 H POC Sodium Sodium 156 H POC Chloride Chloride 112 H Carbon Dioxide Anion Gap 22.0 H POC BUN BUN 104 H* Creatinine 5.8 H* POC Creatinine Glucose 142 H POC Glucose Calcium POC WB Ioniz Calcium Magnesium AST 154 H ALT 128 H Albumin Globulin 4.5 H Albumin/Globulin Ratio 0.8 L Urine Protein Urine Occult Blood Urine RBC Urine WBC Ur Squamous Epith Cells Uric Acid Crystals Urine Bacteria Hyaline Casts Meds: Medications Acetaminophen (Tylenol) 650 mg PO Q4-6HP PRN PRN Reason: PAIN/FEVER > 101 Albuterol/Ipratropium (Duoneb) 3 ml NEB Q6HRT [facility] Last Admin: 06/29/19 01:05 Dose: 3 ml Documented by: Dextrose (Dextrose 50%) 0 ml IV UD PRN PRN Reason: Hypoglycemia Diagnostic Test (Pha) (Accu-Chek) 1 each FS ACHS [facility] Last Admin: 06/28/19 21:02 Dose: 1 each Documented by: Divalproex Sodium (Depakote Sprinkles) 125 mg PO BID [facility] Last Admin: 06/28/19 21:02 Dose: Not Given Documented by: Divalproex Sodium (Depakote Sprinkles) 125 mg PO DAILY@1200 YARI Docusate Sodium (Colace) 100 mg PO BID [facility] Last Admin: 06/28/19 21:02 Dose: Not Given Documented by: Famotidine (Pepcid) 20 mg IV Q12 [facility] Last Admin: 06/28/19 21:13 Dose: 20 mg Documented by: Glucose (Insta-Glucose) 15 gm PO PRN PRN PRN Reason: Hypoglycemia Heparin Sodium (Porcine) (Heparin) 5,000 unit SQ Q12 [facility] Last Admin: 06/28/19 21:13 Dose: 5,000 unit Documented by: Norepinephrine Bitartrate 16 (mg/ Sodium Chloride) 250 mls @ 9.375 mls/hr IV Q24H [facility]; Protocol Last Titration: 06/29/19 06:04 Dose: 14 mcg/min, 13.125 mls/hr Documented by: Sodium Chloride (Sodium Chloride 0.9%) 250 mls @ 20 mls/hr IV .[id number] [facility] Last Admin: 06/29/19 03:45 Dose: Not Given Documented by: Levetiracetam 500 mg/ Sodium (Chloride) 105 mls @ 200 mls/hr IV Q12H [facility] Last Infusion: 06/29/19 00:00 Dose: Infused Documented by: Sodium Chloride (Sodium Chloride 0.9%) 250 mls @ 20 mls/hr IV .[id number] [facility]AIR Last Admin: 06/29/19 03:46 Dose: Not Given Documented by: Dextrose (Dextrose 5% In Water) 1,000 mls @ 150 mls/hr IV .Q6H40M [facility] Stop: 06/29/19 10:19 Last Admin: 06/29/19 06:31 Dose: 150 mls/hr Documented by: Vasopressin 20 unit/ Dextrose 100 mls @ 12 mls/hr IV Q8H [facility]; Protocol Last Admin: 06/29/19 02:12 Dose: 0.06 unit/min, 18 mls/hr Documented by: Sodium Chloride (Sodium Chloride 0.9%) 250 mls @ 20 mls/hr IV .[id number] [facility] Last Admin: 06/29/19 03:45 Dose: Not Given Documented by: Piperacillin Sod/Tazobactam (Sod 2.25 gm/ Dextrose) 50 mls @ 100 mls/hr IV Q6H [facility]; Protocol Last Admin: 06/29/19 05:34 Dose: 100 mls/hr Documented by: Insulin Human Lispro (Humalog) 0 unit SQ ACHS [facility]; Protocol Last Admin: 06/28/19 21:13 Dose: 12 units Documented by: Levothyroxine Sodium (Synthroid) 88 mcg PO QAMAC [facility] Lorazepam (Ativan) 1 mg IV Q2HP PRN PRN Reason: Seizure Activity Ondansetron HCl (Zofran) 4 mg IV Q4-6HP PRN PRN Reason: Nausea And Vomiting Propylene Glycol/Peg 400/Pf [Systane 0.3 -0.4% Eye Drops] 1 dose OU DAILY [facility] Sodium Chloride (Saline Flush) 10 ml IV Q8 [facility] Last Admin: 06/29/19 05:35 Dose: Not Given Documented by: Vancomycin HCl (Vancomycin Per Pharmacy) 1 order IV UD [facility]; Protocol Medical - PN: A/P - Time Spent With Patient Total time spent is greater than 50% in coordination of care (as documented) at patient's floor/unit and/or counseling patient: - Narrative A/P Narrative: A: *Septic shock: -on 2 vasopressors *PNA, likely recurrent Aspiration: *Acute hypoxic Resp failure: 2/2 above -on bipap *Seizure: depakote level low end of range, may need adjustment. Per Mother's history the pt is not absorbing depakote as it is found in some of her stools *Mod oropharyngeal dysphagia: *Dehydration with Hypernatremia: improved *JANE: Improving *Down's Syndrome: *Deconditioning/debility/poor functional status: Has been bedbound since July *Seizure disorder: *GERD: *Hypothyroidism: *Transaminitis: 2/2 hypoxia *Goals of care: Poor prognosis, further discussion with mother P: -After further discussion with mother and addressing patient's current state it was decided to transition patient to comfort care focus only -Patient and family support. -Transition to complete comfort when remainder of family arrives Mother is POA Medical - PN: Qual - Stroke Symptom Onset Unknown: No - VTE Deep Vein Thrombosis/Pulmonary Embolism Present on Admission: No
[2019-06-29 07:03] LABS: ALT/SGPT 86 U/l (0-40); AST/SGOT 81 U/l (0-37); Albumin 2.6 gm/dL (3.2-5.2); Albumin/Globulin Ratio 0.7 (1.0-2.3); Alkaline Phosphatase 75 U/L (39-117); Bilirubin,Direct 0.4 mg/dL (0.0-0.3); Bilirubin,Total 0.9 mg/dL (0.0-1.0); Blood Urea Nitrogen 72 mg/dl (6-20); Carbon Dioxide 20 mmol/L (22-30); Globulin 3.7 gm/dL (2.2-3.7); Glucose 320 mg/dL (70-105); Lactate Dehydrogenase 429 U/L (94-250); Phosphorous 3.8 mg/dL (2.7-4.5); Triglycerides 168 mg/dl (<150); Uric Acid 10.7 mg/dL (2.5-8.0)
[2019-06-29 07:05] LABS: Chloride 110 mmol/L (96-108); Glomerular Filtration Rate 20
[2019-06-29] MEDS ORDERED: INSULIN GLARGINE, HUMAN 1 UNIT/0.01 ML SQ ONE (07:12)
[2019-06-29] MEDS ORDERED: LEVOTHYROXINE 88 MCG TABLET PO SCH (07:30)
[2019-06-29 07:48] LABS: Hematocrit 37.8 % (36.0-48.0); Hemoglobin 12.2 g/dL (12.0-15.0); Mean Cell Volume 104.8 fL (80.0-100.0); Mean Corpuscular HGB Conc 32.2 g/dL (31.0-36.0); Mean Platelet Volume 12.3 fL (7.4-10.4); Platelet Count 125 K/mcL (140-440); RBC 3.61 M/mcL (4.00-5.20)
[2019-06-29 07:54] LABS: Band Neutrophils % 25 % (0-10); Basophils % (Manual) 1 % (0-2); Lymphocytes % 4 % (15-49); Macrocytosis 1+ (NONE SEEN); Monocytes % (Manual) 1 % (1-12); Nucleated Red Blood Cells 4 % (0-0); Platelet Estimate DECREASED (NORMAL); RBC Morphology ABNORMAL (NORMAL); Segmented Neutrophils % 69 % (38-78)
[2019-06-29] MEDS: INSULIN LISPRO 1 UNIT/0.01 ML UNIT SQ SCH (08:03)
[2019-06-29 08:41] LABS: Vancomycin,Random 8.6 ug/mL
[2019-06-29] MEDS ORDERED: ENOXAPARIN 40 MG/0.4 ML SYRINGE SQ SCH (09:00)
[2019-06-29] MEDS ORDERED: Propylene Glycol/Peg 400/Pf [Systane 0.3-0.4% Eye Drops] OU SCH (09:00)
[2019-06-29 09:03] LABS: INR 1.6 (0.9-1.1); Prothrombin Time 18.9 sec (11.9-14.5)
[2019-06-29] MEDS: HEPARIN 5,000 UNIT/ML VIAL SQ SCH (09:03)
[2019-06-29] MEDS: DIVALPROEX 125 MG CAP.SPRINK PO SCH (09:27)
[2019-06-29] MEDS: DOCUSATE SODIUM 100 MG CAPSULE PO SCH (09:27)
[2019-06-29] MEDS: FAMOTIDINE/PF 20 MG/2 ML VIAL IV SCH (09:28)
[2019-06-29] MEDS: levETIRAcetam 500 MG in 0.9 % SODIUM CHLORIDE 100 ML IV SCH (10:03)
[2019-06-29] MEDS ORDERED: NOREPINEPHRINE BITARTRATE 16 MG in 0.9 % SODIUM CHLORIDE 234 ML IV SCH (11:30)
[2019-06-29] MEDS ORDERED: DIVALPROEX 125 MG CAP.SPRINK PO SCH (12:00)
--- NOTE | 2019-06-29 14:58 | Nephrology Progress Note ---
Subjective Patient information: Note initiated : 06/29/19 at 2:53 pm Service Date, if different from initiated Date: [] Patient: Tati Mena a 54 y/o F admitted on 06/28/19 for Cold symptoms. Chief Complaint: [] Principal diagnosis: Dehydration,Acute prerenal azotemia and hypernatremia Interval history: 1. Dehydration improved with IVF 2. Pressors off and BP improved 3. Gm (+) sepsis with probable pulmonary origin -MRSA likely as nares positive and patient from [place] High aspitation risk 4. Hypotension and FeNa < 1% c/w prerenal azotemia, as is the time course of renal recovery. 5. Improved hypernatremia but hyperglycemia occurred in treatment with D5W IVF. 6. Transferred to stepdown. with comfort measures only as she has lived a full life till her decline stating 1 yr ago with surgery, seizures, decline in functional status and dementia. Pertinent ROS: Comfort care Objective - Vital Signs Vital signs: Vital Signs Temp Pulse Resp BP Pulse Ox 06/29/19 12:31 23 H 85/42 06/29/19 12:02 79 20 97 06/29/19 12:01 19 91/40 06/29/19 11:31 22 95/53 06/29/19 11:01 22 90/56 06/29/19 10:53 22 06/29/19 10:31 23 H 95/54 06/29/19 10:01 24 H 112/66 97 06/29/19 09:49 71 20 99 06/29/19 09:46 22 103/64 99 06/29/19 09:31 23 H 103/60 99 06/29/19 09:16 21 104/67 100 06/29/19 09:01 22 98/62 100 06/29/19 08:46 21 85/52 100 06/29/19 08:31 23 H 111/55 100 06/29/19 08:23 20 100 06/29/19 08:16 21 106/63 100 06/29/19 08:01 21 96/59 100 06/29/19 08:00 100 06/29/19 07:45 20 100/63 100 06/29/19 07:41 65 20 100 06/29/19 07:34 66 20 06/29/19 07:31 19 107/73 06/29/19 07:16 18 94/51 100 06/29/19 07:10 21 100 06/29/19 07:01 22 98/52 100 06/29/19 06:46 20 102/55 100 06/29/19 06:30 21 111/68 100 06/29/19 06:25 21 100/53 100 06/29/19 06:00 20 105/58 100 06/29/19 05:30 20 95/78 100 06/29/19 05:01 62 21 100 06/29/19 05:00 21 101/59 100 06/29/19 04:30 22 93/73 100 06/29/19 04:06 22 100 06/29/19 04:01 22 94/47 100 06/29/19 04:00 36.7 C 06/29/19 03:30 20 95/52 100 06/29/19 03:02 20 98/52 100 06/29/19 03:00 63 20 100 06/29/19 02:32 16 103/61 100 06/29/19 02:25 16 100 06/29/19 02:16 21 95/50 100 06/29/19 02:01 23 H 94/45 100 06/29/19 01:45 21 114/63 100 06/29/19 01:31 21 98/61 100 06/29/19 01:16 21 100/53 100 06/29/19 01:00 72 22 101/54 100 06/29/19 00:45 22 103/52 100 06/29/19 00:30 22 98/54 100 06/29/19 00:16 21 103/57 100 06/29/19 00:00 37.0 C 06/28/19 23:30 35 H 102/88 06/28/19 23:15 21 107/54 100 06/28/19 23:00 19 101/49 100 06/28/19 22:45 19 102/49 100 06/28/19 22:30 19 98/57 100 06/28/19 22:16 20 100/39 100 06/28/19 22:01 20 99/62 99 06/28/19 21:55 21 100 06/28/19 21:54 77 21 100 06/28/19 21:46 18 99/65 100 06/28/19 21:31 20 98/64 100 06/28/19 21:16 20 102/58 100 06/28/19 21:01 20 89/58 99 06/28/19 20:55 22 93/55 100 06/28/19 20:53 21 100/50 06/28/19 20:31 20 100/50 100 06/28/19 20:26 21 95/57 100 06/28/19 20:21 19 102/43 99 06/28/19 20:16 19 97/50 99 06/28/19 20:11 19 97/50 99 06/28/19 20:07 20 100/46 100 06/28/19 20:02 20 99/45 100 06/28/19 20:00 20 100 06/28/19 19:56 19 99/50 99 06/28/19 19:51 20 97/54 100 06/28/19 19:47 20 98/50 100 06/28/19 19:41 19 99/50 99 06/28/19 19:36 20 99/47 99 06/28/19 19:31 20 97/68 99 06/28/19 19:27 21 98/42 100 06/28/19 19:22 20 99/48 99 06/28/19 19:17 20 97/46 100 06/28/19 19:11 19 101/51 99 06/28/19 19:06 19 96/53 99 06/28/19 19:01 19 93/50 99 06/28/19 18:56 20 95/62 99 06/28/19 18:55 75 21 100 06/28/19 18:51 20 96/49 99 06/28/19 18:46 23 H 98/55 100 06/28/19 18:41 19 92/51 99 06/28/19 18:37 20 97/52 100 06/28/19 18:31 21 95/59 100 06/28/19 18:27 20 93/49 100 06/28/19 18:21 20 96/47 99 06/28/19 18:17 21 97/52 100 06/28/19 18:12 21 98/49 100 06/28/19 18:06 21 94/48 99 06/28/19 18:01 21 89/58 99 06/28/19 17:56 20 97/45 100 06/28/19 17:51 21 96/49 99 06/28/19 17:46 21 99/46 100 06/28/19 17:41 20 94/61 100 06/28/19 17:37 20 96/43 100 06/28/19 17:31 21 100/54 99 06/28/19 17:28 20 100 06/28/19 17:26 21 94/51 99 06/28/19 17:21 21 95/53 99 06/28/19 17:16 21 101/53 100 06/28/19 17:14 78 22 100 06/28/19 17:11 22 96/41 100 06/28/19 17:07 25 H 96/51 100 06/28/19 17:01 25 H 115/103 100 06/28/19 16:57 19 101/47 100 06/28/19 16:51 25 H 98/53 99 06/28/19 16:46 25 H 97/50 98 06/28/19 16:41 28 H 86/40 97 06/28/19 16:38 25 H 92/53 97 06/28/19 16:31 25 H 86/52 94 06/28/19 16:27 25 H 91/51 95 06/28/19 16:21 38 H 158/121 97 06/28/19 16:19 25 H 116/94 95 06/28/19 16:11 24 H 147/123 06/28/19 16:06 23 H 125/97 99 06/28/19 16:02 24 H 99 06/28/19 16:01 23 H 109/51 98 06/28/19 15:57 22 111/50 99 06/28/19 15:52 30 H 113/12 87 L 06/28/19 15:47 23 H 97/54 98 06/28/19 15:41 24 H 100/46 98 06/28/19 15:37 26 H 100/51 99 06/28/19 15:31 25 H 98/62 98 06/28/19 15:30 24 H 98 06/28/19 15:26 27 H 82/70 97 06/28/19 15:21 24 H 98/47 97 06/28/19 15:16 23 H 98/56 98 06/28/19 15:13 22 87/49 95 06/28/19 15:06 17 79/54 95 06/28/19 15:01 30 H 84/73 94 06/28/19 14:56 25 H 96/63 97 06/28/19 14:54 24 H 96/56 98 Intake and Output 06/29/19 06/29/19 06/29/19 05:59 13:59 21:59 Intake Total 1391 747 Output Total 737 120 Balance 654 627 Intake: IV 1391 747 Dextrose 5% in Water 1,000 ml @ 1000 537 150 mls/hr IV .Q6H40M [facility] Rx#: [id number] Levophed 16 mg In Sodium 140 60 Chloride 0.9% 234 ml @ 10 MCG/ MIN 9.375 mls/hr IV Q24H [facility] Rx #:[id number] Zosyn 2.25 gm In Dextrose 5% in 50 50 Water 50 ml @ 100 mls/hr IV Q6H [facility] Rx#:[id number] Vasostrict 20 Unit In Dextrose 96 100 5% in Water 99 ml @ 0.04 UNIT/ MIN 12 mls/hr IV Q8H [facility] Rx#: [id number] Keppra 500 mg In Sodium 105 Chloride 0.9% 100 ml @ 200 mls/ hr IV Q12H [facility] Rx#:[id number] Output: Urine Catheter Amount 737 120 Other: Urine Appearance Cloudy Cloudy Sediment Uretheral (Haro) Cloudy Cloudy Sediment Sediment Urine Color Dark Yellow Dark Valeria Uretheral (Haro) Dark Yellow Dark Valeria Urine Odor Strong Uretheral (Haro) Strong Stool Size Small Stool Color Brown Yellow Stool Consistency Soft Liquid Loose Weight 63.14 kg Intake & Output: Intake & Output 06/29/19 06/29/19 06/29/19 05:59 13:59 21:59 Intake Total 1391 747 Output Total 737 120 Balance 654 627 Weight 63.14 kg Intake: IV 1391 747 Dextrose 5% in Water 1,000 ml @ 1000 537 150 mls/hr IV .Q6H40M [facility] Rx#: [id number] Levophed 16 mg In Sodium 140 60 Chloride 0.9% 234 ml @ 10 MCG/ MIN 9.375 mls/hr IV Q24H [facility] Rx #:[id number] Zosyn 2.25 gm In Dextrose 5% in 50 50 Water 50 ml @ 100 mls/hr IV Q6H [facility] Rx#:[id number] Vasostrict 20 Unit In Dextrose 96 100 5% in Water 99 ml @ 0.04 UNIT/ MIN 12 mls/hr IV Q8H [facility] Rx#: [id number] Keppra 500 mg In Sodium 105 Chloride 0.9% 100 ml @ 200 mls/ hr IV Q12H [facility] Rx#:[id number] Output: Urine Catheter Amount 737 120 Other: Urine Appearance Cloudy Cloudy Sediment Uretheral (Haro) Cloudy Cloudy Sediment Sediment Urine Color Dark Yellow Dark Valeria Uretheral (Haro) Dark Yellow Dark Valeria Urine Odor Strong Uretheral (Haro) Strong Stool Size Small Stool Color Brown Yellow Stool Consistency Soft Liquid Loose - General Appearance General appearance: well-developed, obese, chronically ill, comatose EENT: ATNC (down's appearance) Neck: no JVD Respiratory: rhonchi Cardiology: regular rate, regular rhythm Gastrointestinal: no tenderness Integumentary: warm and dry Neurologic: obtunded Musculoskeletal: deformities (typical of Down's syndrome) Psychiatric: cooperative - Lab 06/29/19 04:15 06/29/19 04:15 Most recent lab results Calcium 9.0 mg/dl (8.6-10.4) 06/29/19 04:15 Phosphorus 3.8 mg/dL (2.7-4.5) 06/29/19 04:15 Magnesium 2.7 mg/dL (1.6-2.5) H 06/29/19 04:15 Assessment and Plan (1) Acute renal failure Acute prerenal azotemia Improving at the time to change to comfort measures only Status: Acute Priority: High Comment: Prerenal azotemia +/- ATN Qualifiers: Acute renal failure type: unspecified Qualified Code(s): N17.9 - Acute kidney failure, unspecified (2) Hypernatremia Also improving at the time decision was made to pursue comfort measures only Status: Acute Priority: High - Narrative A/P Narrative: Gram-positive bacteremia is likely staph species originating in her lungs. If she had flu this could have been post influenza staph pneumonia. Just this likely is aspiration pneumonia in which case it is most likely MRSA given her nasopharyngeal colonization. That said her progressive decline in functionality to the point of 100% dependence on halfway for all her activities has made the decision easy to place matters into God's hands. Spoke with the family, complemented them on the excellent care they have given Tati over her lifetime and bedside pressure was conducted with the family at their request.
[2019-06-29] MEDS: LORazepam 2 MG/ML VIAL IV PRN (17:18)
[2019-06-30] MEDS: LORazepam 2 MG/ML VIAL IV PRN ×3 (01:30→12:10)
[2019-06-30] MEDS: 0.9 % SODIUM CHLORIDE 10 ML SYRINGE IV SCH ×2 (07:24→14:53)
--- NOTE | 2019-06-30 18:10 | Death Note ---
Discharge Sum: Prov - Provider Patient information: Note initiated : 06/30/19 at 6:08 pm Service Date, if different from initiated Date: [] Patient: Tati Mena a 54 y/o F admitted on 06/28/19 for Cold symptoms. Chief Complaint: [] Primary care physician: Rubén Goncalves Admitting clinician: Owen Somers Consults: 06/28/19 12:42 Consult to Physician [CONS] Stat Comment: Consulting Provider: Owen Somers Reason For Exam: Physician to Consult 06/28/19 13:20 Consult to Physician [CONS] Routine Comment: Consulting Provider: Amandeep Fountain Reason For Exam: Physician to Consult Pronouncing clinician: Andreina Hall Discharge Sum: Diag - PCOD Cause of : Sepsis Discharge Sum: Summary - Date and Time Date of admission: 06/28/19 13:55 Date of : 06/30/19 Time of : 17:45 - Summary Details: 06/28 Ms. Mena is a 54 year old F Patient was found to be poorly responsive by staff and appeared to have fevers and chills with rigors. Respiratory effort was poor. And she had a productive cough with hypoxia. In the ED she was tachycardic and tachypneic. She is quite hyponatremic and had a significant acute kidney injury. Elevated lactate and procalcitonin. She continued to decline despite 2 L of fluid. Start antibiotics she was placed on BiPAP. CT imaging was severe pneumonia. There were some abnormal airway findings on the CT and this was discussed with Dr. Day who felt that she was too high risk for him to undergo bronchoscopy. It was discussed with Dr. Fountain foundation assistant as well. She was eventually placed on vasopressorsblood pressure continue to to decline. Her mother is traveling from [place] currently. Case was discussed with ER physician and a sister who was okay with current measures including the vasopressors but if she declines and to make her comfort. Upon my visit patient is minimally responsive on the BiPAP and vasopressors are being increased. Very guarded prognosis. Primary care physician Dr. Goncalves aware of situation. 06/29 Patient continued on BiPAP and dual vasopressors last night. Laboratory work does show improvement. Cultures with MRSA. Had a another discussion with her mother, POA. Patient originally a DNR comfort care focus but with the sudden event she was treated aggressively with BiPAP and vasopressors. We continued this through the night. Mother discusses the general decline in her daughter and lack of quality of life. And with this latest insult if we were able to pull her through it she would be even more debilitated and likely return sooner than later. After a long conversation it was decided to transition to comfort care focus only. Patient will continue current regimen until family arrives later this morning and then will transition to comfort care only. 06/30 Patient converted to comfort care yesterday evening. BiPAP was stopped and vasopressors turned off. She stabilized overnight, though continued to slowly decline during the day today, 06/30. Time of was 17:45 hrs. Diagnoses: *Septic shock: Secondary to staph aureus, likely pulmonary source with bacteremia *PNA, likely recurrent Aspiration: Suspected staph aureus *Acute hypoxic Resp failure: 2/2 above *Seizure disorder *Mod oropharyngeal dysphagia *Dehydration with Hypernatremia with estimated 3 liter free water deficit *JANE secondary to pre-renal and possible ATN causes *Down's Syndrome *Deconditioning/debility/poor functional status: Has been bedbound since July - Additional Data Confirmation of as documented by pronouncing clinician: no pulse, no respirations, no heart sounds Family: at bedside Attending physician: Andreina Hall Advance directives?: Yes Hospice patient?: No (Comfort measures)
== END 2019-06-30 19:48 | disposition expired | DRG 871 ==
LOC: ED 07:59 → ICU 13:50 → SUATTDRO 13:55 → ICU 13:55
PROVIDERS: ADMIT Internal Medicine; ATTEND Internal Medicine